=== PATIENT | female | born 1940 | race Caucasian/White ===

== ENCOUNTER 2019-12-20 15:59 | Inpatient (IN) | payer MEDICARE ==
[2019-12-20 16:59] LABS: Appearance,Urine Clear (Clear); Bilirubin,Urine Negative (Negative); Blood,Urine Negative (Negative); Color,Urine Yellow; Glucose,Urine (UA) Negative (Negative); Hyaline Casts,Urine 21 /lpf (0-2); Ketones,Urine Negative (Negative); Leukocyte Esterase,Urine Small (Negative); Mucus,Urine Rare /hpf; Nitrite,Urine Negative (Negative); Protein,Urine Trace (Negative); RBC,Urine 1 /hpf (0-5); Squamous Epithelial Cell,Urine 2 /hpf (0-4); Urobilinogen,Urine <2.0 mg/dL (<2.0); WBC,Urine 3 /hpf (0-5)
[2019-12-20 17:11] LABS: Basophils % (A) 0 %; Eosinophils % (A) 1 %; HCT 35.7 % (34.0-46.0); HGB 11.9 gm/dL (11.4-16.0); Lymphocytes # (A) 0.8 k/uL (1.0-4.8); Lymphocytes % (A) 16 %; MCH 34.3 pg (25.0-35.0); MCHC 33.2 g/dL (31.0-37.0); MCV 103.1 fL (80.0-100.0); Macrocytosis Slight; Mean Platelet Volume 7.7; Monocytes # (A) 0.2 k/uL (0-1.0); Monocytes % (A) 4 %; Neutrophils % (A) 79 %; Platelet Count 119 k/uL (150-450); RBC 3.47 m/uL (3.80-5.40); RDW 13.4 % (11.5-15.5)
[2019-12-20 17:19] LABS: Albumin 3.3 g/dL (3.5-5.0); Calcium 8.9 mg/dL (8.4-10.2); Potassium 4.4 mmol/L (3.5-5.1); Total Bilirubin 0.6 mg/dL (0.2-1.3); Total Protein 5.6 g/dL (6.3-8.2)
[2019-12-20 17:22] LABS: INR 0.9 (<1.2); Partial Thromboplastin Time 24.6 sec (22.0-30.0); Prothrombin Time 9.8 sec (9.0-12.0)
--- NOTE | 2019-12-20 17:55 | XR ---
EXAMINATION TYPE: XR chest 2V DATE OF EXAM: 12/20/2019 COMPARISON: 01/21/2014 HISTORY: Weakness. Dizziness. TECHNIQUE: FINDINGS: Heart and mediastinum are normal. Lungs are clear. Diaphragm is normal. Bony thorax is inta ct. Pulmonary vascularity is normal. There are chest leads. There is some pleural thickening at the l judi apices. IMPRESSION: No active cardiopulmonary disease. Minimal pleural scarring at the lung apices unchanged.
[2019-12-20] MEDS: SODIUM CHLORIDE 0.9% 1,000 ML IV SCH (18:01)
[2019-12-20] MEDS ORDERED: HEPARIN SODIUM,PORCINE 5,000 UNIT/ML 1 ML VIAL IV PRN (18:24)
[2019-12-20] MEDS ORDERED: ASPIRIN 81 MG PO STA (18:24)
[2019-12-20] MEDS ORDERED: HEPARIN SODIUM,PORCINE 5,000 UNIT/ML 1 ML VIAL IV ONE (18:24)
[2019-12-20] MEDS ORDERED: NALOXONE 0.4 MG/ML 1 ML VIAL IV PRN (18:26)
--- NOTE | 2019-12-20 18:58 | ED ---
Weakness HPI - General Chief complaint: Weakness Stated complaint: Weakness Source: patient Mode of arrival: ambulatory - History of Present Illness Initial comments: The patient is a 79-year-old female past medical history of renal transplant in 1998 who presents to the emergency room in with reported weakness. Patient states that starting last Sunday she began having generalized weakness with decreased urine output. Was concerned that her kidneys were failing as her last blood work was done 8 months ago. She does see Dr. Avery but has been unable to see her because of the Covid pandemic. States that her kidney function has been declining slowly. She has been taking her transplant medications as directed. Reports to dark urine without dysuria. Patient is also noted bilateral lower extremity swelling. Also reports to diarrhea. Denies melenic stools or hematochezia. No history of heart failure, valvular disease or GA. Patient denies having any chest pain or shortness of breath. No exertional dyspnea. Admits to nausea without vomiting. No back or flank pain. Denies any abdominal pain. No fevers or chills. Denies any unilateral numbness or weakness. There are no alleviating, precipitating or modifying factors - Related Data Home Medications Medication Instructions Recorded Confirmed Enalapril [Vasotec] 2.5 mg PO QAM PRN 12/03/13 12/20/19 Furosemide [Lasix] 40 mg PO QAM PRN 12/03/13 12/20/19 Levothyroxine Sodium [Synthroid] 75 mcg PO MOTUWETHFR 12/03/13 12/20/19 Raloxifene [Evista] 60 mg PO QAM 12/03/13 12/20/19 predniSONE [Prednisone] 5 mg PO Q48H 12/03/13 12/20/19 Hydrocodone/Acetaminophen [[place] 1 tab PO ACHS PRN 01/21/14 12/20/19 5-325] Iron 27 mg PO DAILY 01/21/14 12/20/19 Atorvastatin [Lipitor] 10 mg PO DAILY 12/20/19 12/20/19 Calcitriol [Rocaltrol] 0.25 mcg PO MOWEFR 12/20/19 12/20/19 Calcium Carbonate [Calcium] 600 mg PO BID 12/20/19 12/20/19 Cyclosporine, Modified 25 mg PO Q48H 12/20/19 12/20/19 [Cyclosporine Modified] Cyclosporine, Modified 50 mg PO Q48H 12/20/19 12/20/19 [Cyclosporine Modified] Ergocalciferol (Vitamin D2) 50,000 unit PO Q30D 12/20/19 12/20/19 [Drisdol] Febuxostat [Uloric] 80 mg PO DAILY 12/20/19 12/20/19 Multivitamins, Thera [Multivitamin 1 tab PO DAILY 12/20/19 12/20/19 (formulary)] Mycophenolate Sodium [Mycophenolic 360 mg PO BID 12/20/19 12/20/19 Acid] predniSONE 2.5 mg PO Q48H 12/20/19 12/20/19 Allergies Allergy/AdvReac Type Severity Reaction Status Date / Time morphine Allergy nightmares Verified 12/20/19 16:13 Penicillins Allergy Unknown Verified 12/20/19 16:13 Childhood Review of Systems ROS Statement: Those systems with pertinent positive or pertinent negative responses have been documented in the HPI. ROS Other: All systems not noted in ROS Statement are negative. Past Medical History Past Medical History: Cancer, Hyperlipidemia, Hypertension, Renal Disease, Thyroid Disorder Additional Past Medical History / Comment(s): MULT SKIN CANCER, GOUT, ARTHRITIS,ULCER YEARS AGO, POLYCYSTIC KIDNEY DISEASE, ANEMIA History of Any Multi-Drug Resistant Organisms: None Reported Past Surgical History: Tubal Ligation Additional Past Surgical History / Comment(s): THOMAS KIDNEY TRANSPLANT 06/1999, CATARACT, LEFT CAROTID ENDARTERECTOMY, RECTAL FISSURE, MULT SKIN CANCER REMOVED, D & C Past Anesthesia/Blood Transfusion Reactions: No Reported Reaction Past Psychological History: No Psychological Hx Reported Smoking Status: Former smoker Past Alcohol Use History: Daily Past Drug Use History: None Reported Course Vital Signs 12/20/19 12/20/19 12/20/19 16:09 16:35 16:56 Temperature 97.5 F L 97.5 F L Pulse Rate 76 62 Respiratory 18 33 H 18 Rate Blood Pressure 142/77 142/77 O2 Sat by Pulse 100 100 Oximetry 12/20/19 12/20/19 12/20/19 17:00 17:30 18:00 Temperature Pulse Rate 61 64 Respiratory 10 L 35 H 11 L Rate Blood Pressure 128/71 O2 Sat by Pulse 100 Oximetry 12/20/19 12/20/19 18:30 19:00 Temperature Pulse Rate 62 60 Respiratory 23 15 Rate Blood Pressure 134/70 134/70 O2 Sat by Pulse 99 97 Oximetry EKG Findings - EKG Comments: EKG Findings:: EKG demonstrates a normal sinus rhythm with a ventricular rate of 64. NM interval 198. QRS 104. QTC of 507. 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 0.5 mm elevation in V3. No STEMI criteria. Procedures - [facility] Protocol (Time Out) Nurse: Nelda Ceja Medical Decision Making - Medical Decision Making Upon arrival patient placed in room 5. A thorough history and physical exam is performed. Patient up to continuous pulse ox and cardiac monitoring. A 12-lead EKG is performed which is concerning for deep inverted T waves in V3 through V6. Positive for Wellens sign however patient has no symptoms of chest pain or shortness of breath. No criteria for STEMI activation. EKG is compared to jesus balaji's previous in 2013 and is different in morphology. Laboratory studies were conducted. Patient does bring a urine sample with her. Labs are remarkable for a sodium of 116. Creatinine 1.48 with a GFR of 34. Troponin comes back elevated at 5.0. BNP 19,100. Urinalysis shows small leukocyte esterase with no bacteria. Chest x-ray demonstrates no active cardiac coronary disease. I discussed the case with Dr. Lorenzo at 1806 because of the patient's abnormal EKG and elevated troponin. He recommends heparinizing the patient as well as providing her with aspirin and a beta ara. I discussed the case with him once again 1836 and he does present to the emergency department shortly after to evaluate her. Upon his evaluation he states that best plan of action is for non-catheterization at this time due to the patient not having chest pain and because of her poor kidney function. Patient has no current medications to heparin. She is agreeable to plan. I will make the patient nothing by mouth by mouth at midnight. Echo was ordered for tomorrow. Patient will be admitted to the floor for nephrology and cardiac consultation. - Lab Data Result diagrams: 12/20/19 16:46 12/20/19 16:46 Lab Results 12/20/19 12/20/19 12/20/19 Range/Units 16:00 16:46 16:46 WBC 5.0 (3.8-10.6) k/uL RBC 3.47 L (3.80-5.40) m/uL Hgb 11.9 (11.4-16.0) gm/dL Hct 35.7 (34.0-46.0) % MCV 103.1 H (80.0-100.0) fL MCH 34.3 (25.0-35.0) pg MCHC 33.2 (31.0-37.0) g/dL RDW 13.4 (11.5-15.5) % Plt Count 119 L (150-450) k/uL Neutrophils % 79 % Lymphocytes % 16 % Monocytes % 4 % Eosinophils % 1 % Basophils % 0 % Neutrophils # 4.0 (1.3-7.7) k/uL Lymphocytes # 0.8 L (1.0-4.8) k/uL Monocytes # 0.2 (0-1.0) k/uL Eosinophils # 0.0 (0-0.7) k/uL Basophils # 0.0 (0-0.2) k/uL Macrocytosis Slight PT 9.8 (9.0-12.0) sec INR 0.9 (<1.2) APTT 24.6 (22.0-30.0) sec Sodium (137-145) mmol/L Potassium (3.5-5.1) mmol/L Chloride (98-107) mmol/L Carbon Dioxide (22-30) mmol/L Anion Gap mmol/L BUN (7-17) mg/dL Creatinine (0.52-1.04) mg/dL Est GFR (CKD-EPI)AfAm (>60 ml/min/1.73 sqM) Est GFR (CKD-EPI)NonAf (>60 ml/min/1.73 sqM) Glucose (74-99) mg/dL Plasma Lactic Acid Oscar (0.7-2.0) mmol/L Calcium (8.4-10.2) mg/dL Total Bilirubin (0.2-1.3) mg/dL AST (14-36) U/L ALT (4-34) U/L Alkaline Phosphatase (38-126) U/L Creatine Kinase (30-135) U/L Troponin I (0.000-0.034) ng/mL NT-Pro-B Natriuret Pep pg/mL Total Protein (6.3-8.2) g/dL Albumin (3.5-5.0) g/dL TSH (0.465-4.680) mIU/L Urine Color Yellow Urine Appearance Clear (Clear) Urine pH 5.0 (5.0-8.0) Ur Specific [place] 1.020 (1.001-1.035) Urine Protein Trace H (Negative) Urine Glucose (UA) Negative (Negative) Urine Ketones Negative (Negative) Urine Blood Negative (Negative) Urine Nitrite Negative (Negative) Urine Bilirubin Negative (Negative) Urine Urobilinogen <2.0 (<2.0) mg/dL Ur Leukocyte Esterase Small H (Negative) Urine RBC 1 (0-5) /hpf Urine WBC 3 (0-5) /hpf Ur Squamous Epith Cells 2 (0-4) /hpf Hyaline Casts 21 H (0-2) /lpf Urine Mucus Rare H (None) /hpf 12/20/19 12/20/19 12/20/19 Range/Units 16:46 16:46 16:46 WBC (3.8-10.6) k/uL RBC (3.80-5.40) m/uL Hgb (11.4-16.0) gm/dL Hct (34.0-46.0) % MCV (80.0-100.0) fL MCH (25.0-35.0) pg MCHC (31.0-37.0) g/dL RDW (11.5-15.5) % Plt Count (150-450) k/uL Neutrophils % % Lymphocytes % % Monocytes % % Eosinophils % % Basophils % % Neutrophils # (1.3-7.7) k/uL Lymphocytes # (1.0-4.8) k/uL Monocytes # (0-1.0) k/uL Eosinophils # (0-0.7) k/uL Basophils # (0-0.2) k/uL Macrocytosis PT (9.0-12.0) sec INR (<1.2) APTT (22.0-30.0) sec Sodium 116 L* (137-145) mmol/L Potassium 4.4 (3.5-5.1) mmol/L Chloride 89 L (98-107) mmol/L Carbon Dioxide 17 L (22-30) mmol/L Anion Gap 10 mmol/L BUN 46 H (7-17) mg/dL Creatinine 1.48 H (0.52-1.04) mg/dL Est GFR (CKD-EPI)AfAm 39 (>60 ml/min/1.73 sqM) Est GFR (CKD-EPI)NonAf 34 (>60 ml/min/1.73 sqM) Glucose 100 H (74-99) mg/dL Plasma Lactic Acid Oscar 0.9 (0.7-2.0) mmol/L Calcium 8.9 (8.4-10.2) mg/dL Total Bilirubin 0.6 (0.2-1.3) mg/dL AST 54 H (14-36) U/L ALT 14 (4-34) U/L Alkaline Phosphatase 57 (38-126) U/L Creatine Kinase 327 H (30-135) U/L Troponin I 5.010 H* (0.000-0.034) ng/mL NT-Pro-B Natriuret Pep pg/mL Total Protein 5.6 L (6.3-8.2) g/dL Albumin 3.3 L (3.5-5.0) g/dL TSH 1.630 (0.465-4.680) mIU/L Urine Color Urine Appearance (Clear) Urine pH (5.0-8.0) Ur Specific [place] (1.001-1.035) Urine Protein (Negative) Urine Glucose (UA) (Negative) Urine Ketones (Negative) Urine Blood (Negative) Urine Nitrite (Negative) Urine Bilirubin (Negative) Urine Urobilinogen (<2.0) mg/dL Ur Leukocyte Esterase (Negative) Urine RBC (0-5) /hpf Urine WBC (0-5) /hpf Ur Squamous Epith Cells (0-4) /hpf Hyaline Casts (0-2) /lpf Urine Mucus (None) /hpf 12/19/ Range/Units 16:46 WBC (3.8-10.6) k/uL RBC (3.80-5.40) m/uL Hgb (11.4-16.0) gm/dL Hct (34.0-46.0) % MCV (80.0-100.0) fL MCH (25.0-35.0) pg MCHC (31.0-37.0) g/dL RDW (11.5-15.5) % Plt Count (150-450) k/uL Neutrophils % % Lymphocytes % % Monocytes % % Eosinophils % % Basophils % % Neutrophils # (1.3-7.7) k/uL Lymphocytes # (1.0-4.8) k/uL Monocytes # (0-1.0) k/uL Eosinophils # (0-0.7) k/uL Basophils # (0-0.2) k/uL Macrocytosis PT (9.0-12.0) sec INR (<1.2) APTT (22.0-30.0) sec Sodium (137-145) mmol/L Potassium (3.5-5.1) mmol/L Chloride (98-107) mmol/L Carbon Dioxide (22-30) mmol/L Anion Gap mmol/L BUN (7-17) mg/dL Creatinine (0.52-1.04) mg/dL Est GFR (CKD-EPI)AfAm (>60 ml/min/1.73 sqM) Est GFR (CKD-EPI)NonAf (>60 ml/min/1.73 sqM) Glucose (74-99) mg/dL Plasma Lactic Acid Oscar (0.7-2.0) mmol/L Calcium (8.4-10.2) mg/dL Total Bilirubin (0.2-1.3) mg/dL AST (14-36) U/L ALT (4-34) U/L Alkaline Phosphatase (38-126) U/L Creatine Kinase (30-135) U/L Troponin I (0.000-0.034) ng/mL NT-Pro-B Natriuret Pep 99726 pg/mL Total Protein (6.3-8.2) g/dL Albumin (3.5-5.0) g/dL TSH (0.465-4.680) mIU/L Urine Color Urine Appearance (Clear) Urine pH (5.0-8.0) Ur Specific [place] (1.001-1.035) Urine Protein (Negative) Urine Glucose (UA) (Negative) Urine Ketones (Negative) Urine Blood (Negative) Urine Nitrite (Negative) Urine Bilirubin (Negative) Urine Urobilinogen (<2.0) mg/dL Ur Leukocyte Esterase (Negative) Urine RBC (0-5) /hpf Urine WBC (0-5) /hpf Ur Squamous Epith Cells (0-4) /hpf Hyaline Casts (0-2) /lpf Urine Mucus (None) /hpf Disposition Clinical Impression: Non-STEMI (non-ST elevated myocardial infarction), Heart failure, Hyponatremia, Renal transplant recipient Disposition: ADMITTED IP TO THIS HOSP Condition: Serious Is patient prescribed a controlled substance at d/c from ED?: No Decision to Admit Reason: Admit from EC Decision Date: 12/20/19 Decision Time: 18:58
[2019-12-20] MEDS: HEPARIN SOD,PORK IN 0.45% NACL 25,000 UNIT in 0.45% NACL 1 250ML.BAG IV SCH (19:13)
--- NOTE | 2019-12-20 19:24 | P.CRDCN ---
History of Present Illness Consult date: 12/20/19 Chief complaint: Generalized weakness History of present illness: This is a very pleasant 79-year-old female patient with a past medical history significant for hypertension, dyslipidemia, and history of renal transplant several years ago, presented to the emergency room because she was not feeling well. The patient lives by herself but she is under a lot of stress with her son and his . Her son currently is in senior care. His is alcohol rate. The patient is very stressed about the whole situation. Her symptoms started about a week ago, this past Sunday when she started experiencing generalized weakness and fatigue without any symptoms of chest pain or chest discomfort. The generalized weakness and fatigue have progressed over the next several days. For the last few days she has been experiencing progressive lower extremities edema and she has been retaining water. She did not have any symptoms of shortness of breath, dizziness, heart racing or fluttering or syncope. She did not have any symptoms of chest pain or chest discomfort. She decided to come to the emergency department. In the ER the workup was consistent with heart failure. The BNP came in to be elevated. More importantly, on physical examination she does have significant bilateral lower extremities pitting edema. Beside that she does have a pansystolic murmur consistent with possible mitral regurgitation murmur. Beside that she underwent an EKG which revealed sinus rhythm with Q waves in V1, V2, and V3, was very minimal ST segment changes. The troponin came in to be abnormal as well as 5.0. Beside that her sodium was low. The chest x-ray did not show any acute abnormalities. More importantly, the patient GFR is abnormal at 35. I had a long discussion with the patient regarding the next step. I discussed with her the invasive strategy and proceeding with coronary angiogram with the benefit of knowing the coronary anatomy and possibly performing percutaneous coronary intervention if needed, as well as the risks which include possible acute renal failure giving her abnormal GFR at this point as well as a history of renal transplant. I also discussed with the patient the conservative strategy which include starting her on aspirin as well as beta ara with metoprolol as well as heparin IV and also obtain an echocardiogram was Doppler to evaluate the different systolic function as well as intracardiac valves as well as for any wall motion abnormalities concerning for severe underlying coronary artery disease. After I discussed both strategies with the patient the patient would like to pursue with a conservative medical approach at this point and she is reluctant to undergo coronary angiogram with a concern regarding her renal failure and the renal transplant. Having said that I am going to admit the patient to the floor. She will be started on aspirin, metoprolol, statin, as well as heparin IV. We'll obtain an echocardiogram was Doppler. We'll continue following up with the patient. Past Medical History Past Medical History: Cancer, Hyperlipidemia, Hypertension, Renal Disease, Thyroid Disorder Additional Past Medical History / Comment(s): MULT SKIN CANCER, GOUT, ARTHRITIS,ULCER YEARS AGO, POLYCYSTIC KIDNEY DISEASE, ANEMIA History of Any Multi-Drug Resistant Organisms: None Reported Past Surgical History: Tubal Ligation Additional Past Surgical History / Comment(s): THOMAS KIDNEY TRANSPLANT 06/1999, CATARACT, LEFT CAROTID ENDARTERECTOMY, RECTAL FISSURE, MULT SKIN CANCER REMOVED, D & C Past Anesthesia/Blood Transfusion Reactions: No Reported Reaction Past Psychological History: No Psychological Hx Reported Smoking Status: Former smoker Past Alcohol Use History: Daily Past Drug Use History: None Reported Medications and Allergies Home Medications Medication Instructions Recorded Confirmed Type Enalapril [Vasotec] 2.5 mg PO QAM PRN 12/03/13 12/20/19 History Furosemide [Lasix] 40 mg PO QAM PRN 12/03/13 12/20/19 History Levothyroxine Sodium [Synthroid] 75 mcg PO MOTUWETHFR 12/03/13 12/20/19 History Raloxifene [Evista] 60 mg PO QAM 12/03/13 12/20/19 History predniSONE [Prednisone] 5 mg PO Q48H 12/03/13 12/20/19 History Hydrocodone/Acetaminophen [[place] 1 tab PO ACHS PRN 01/21/14 12/20/19 History 5-325] Iron 27 mg PO DAILY 01/21/14 12/20/19 History Atorvastatin [Lipitor] 10 mg PO DAILY 12/20/19 12/20/19 History Calcitriol [Rocaltrol] 0.25 mcg PO MOWEFR 12/20/19 12/20/19 History Calcium Carbonate [Calcium] 600 mg PO BID 12/20/19 12/20/19 History Cyclosporine, Modified 25 mg PO Q48H 12/20/19 12/20/19 History [Cyclosporine Modified] Cyclosporine, Modified 50 mg PO Q48H 12/20/19 12/20/19 History [Cyclosporine Modified] Ergocalciferol (Vitamin D2) 50,000 unit PO Q30D 12/20/19 12/20/19 History [Drisdol] Febuxostat [Uloric] 80 mg PO DAILY 12/20/19 12/20/19 History Multivitamins, Thera [Multivitamin 1 tab PO DAILY 12/20/19 12/20/19 History (formulary)] Mycophenolate Sodium [Mycophenolic 360 mg PO BID 12/20/19 12/20/19 History Acid] predniSONE 2.5 mg PO Q48H 12/20/19 12/20/19 History Allergies Allergy/AdvReac Type Severity Reaction Status Date / Time morphine Allergy nightmares Verified 12/20/19 16:13 Penicillins Allergy Unknown Verified 12/20/19 16:13 Childhood Physical Exam Vitals: Vital Signs Temp Pulse Resp BP Pulse Ox 12/20/19 19:00 60 15 134/70 97 12/20/19 18:30 62 23 134/70 99 12/20/19 18:00 11 L 128/71 100 12/20/19 17:30 64 35 H 12/20/19 17:00 61 10 L 12/20/19 16:56 97.5 F L 62 18 142/77 100 12/20/19 16:35 33 H 12/20/19 16:09 97.5 F L 76 18 142/77 100 Intake and Output 12/20/19 12/20/19 12/20/19 06:59 14:59 22:59 Other: Weight 81.647 kg - Constitutional General appearance: no acute distress - Respiratory Respiratory: bilateral: CTA - Cardiovascular Rhythm: regular Heart sounds: normal: S1, S2 Abnormal Heart Sounds: systolic murmur Results 12/20/19 16:46 12/20/19 16:46 Cardiac Enzymes 12/20/19 12/20/19 Range/Units 16:46 16:46 AST 54 H (14-36) U/L Troponin I 5.010 H* (0.000-0.034) ng/mL Coagulation 12/20/19 Range/Units 16:46 PT 9.8 (9.0-12.0) sec APTT 24.6 (22.0-30.0) sec CBC 12/20/19 Range/Units 16:46 WBC 5.0 (3.8-10.6) k/uL RBC 3.47 L (3.80-5.40) m/uL Hgb 11.9 (11.4-16.0) gm/dL Hct 35.7 (34.0-46.0) % Plt Count 119 L (150-450) k/uL Comprehensive Metabolic Panel 12/20/19 Range/Units 16:46 Sodium 116 L* (137-145) mmol/L Potassium 4.4 (3.5-5.1) mmol/L Chloride 89 L (98-107) mmol/L Carbon Dioxide 17 L (22-30) mmol/L BUN 46 H (7-17) mg/dL Creatinine 1.48 H (0.52-1.04) mg/dL Glucose 100 H (74-99) mg/dL Calcium 8.9 (8.4-10.2) mg/dL AST 54 H (14-36) U/L ALT 14 (4-34) U/L Alkaline Phosphatase 57 (38-126) U/L Total Protein 5.6 L (6.3-8.2) g/dL Albumin 3.3 L (3.5-5.0) g/dL Current Medications Generic Name Dose Route Start Last Admin Trade Name Freq PRN Reason Stop Dose Admin Heparin Sodium (Porcine) 0 unit 12/20/19 18:24 Heparin IV PER PROTOCOL PRN Low PTT Protocol Sodium Chloride 1,000 mls @ 100 mls/hr 12/20/19 17:30 12/20/19 18:01 Saline 0.9% IV 100 mls/hr .Q10H NGOC Administration Heparin Sodium/Sodium Chloride 250 mls @ 9.798 mls/hr 12/20/19 18:30 12/20/19 19:13 25,000 unit/ Sodium Chloride IV 12 units/kg/hr .Q24H NGOC 9.798 mls/hr Administration Protocol 12 UNITS/KG/HR Metoprolol Tartrate 12.5 mg 12/20/19 19:00 Lopressor PO DAILY NGOC Naloxone HCl 0.2 mg 12/20/19 18:26 Narcan IV Q2M PRN Opioid Reversal Intake and Output 12/20/19 12/20/19 12/20/19 06:59 14:59 22:59 Other: Weight 81.647 kg Patient Weight 12/21/19 06:59 Weight 81.647 kg 12/20/19 16:46 12/20/19 16:46 Assessment and Plan Assessment: Assessment #1 acute coronary event #2 heart failure with predominantly right heart failure, probably the heart failure was precipitated by acute coronary event. #3 valvular heart disease #4 chronic kidney disease #5 status post kidney transplant #6 electrolytes imbalance with hyponatremia #7 hypertension #8 dyslipidemia Plan #1 conservative medical approach at this point #2 start the patient on aspirin, metoprolol, and statin #3 start the patient on heparin IV #4 an echocardiogram was Doppler #5 nephrology consult #6 proceed with coronary angiogram once the kidney function normalized and once we have the okay from the nephrology service Thank you for allowing us participate in her care we will continue following up with the patient
[2019-12-20] MEDS: MYCOPHENOLATE SODIUM DR 180 MG TABLET.DR PO SCH (20:46)
[2019-12-20] MEDS: METOPROLOL TARTRATE 12.5 MG TAB PO SCH (20:46)
[2019-12-21] MEDS ORDERED: LORazepam 2 MG/ML INJ IV PRN ×3 (01:11)
--- NOTE | 2019-12-21 01:11 | P.HPIM ---
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 she has also been under a lot of emotional stress due to social issues. she denies any cardiac history, denies any chest pain or trouble breathing . but she has noticed increase leg swelling over the past couple days , which prompted her to come seeking help , as she was worried about her kidneys. she denies any fever, chills, chest pain , SOB, URI symptoms, dysuria, GI bleeding she has been self isolating and practicing good hygiene practice. denies any recent travel or sick contact. she admits to drinking couple glasses of wine every day denies any recent changes in her medications she also reports symptoms of RLS. she takes norco at home for back pain patient was evaluated by cardiology, due to elevated trops, and Q waves in V1,2,3. and T wave inversion diffusely. Patient agreed with cardiology to pursue maximal medical management, at this time, awaiting nephrology evaluation and clearance to pursue left heart cath . labs reflected renal function that is off, hyponatremia, and elevated troponins Review of Systems Pertinent positives as noted in HPI. All other systems were reviewed and are negative Past Medical History Past Medical History: Cancer, Hyperlipidemia, Hypertension, Renal Disease, Thyroid Disorder Additional Past Medical History / Comment(s): MULT SKIN CANCER, GOUT, ARTHRITIS,ULCER YEARS AGO, POLYCYSTIC KIDNEY DISEASE, ANEMIA History of Any Multi-Drug Resistant Organisms: None Reported Past Surgical History: Tubal Ligation Additional Past Surgical History / Comment(s): [facility] 06/1999, C ATARACT, LEFT CAROTID ENDARTERECTOMY, RECTAL FISSURE, MULT SKIN CANCER REMOVED, D & C Past Anesthesia/Blood Transfusion Reactions: No Reported Reaction Past Psychological History: No Psychological Hx Reported Smoking Status: Former smoker Past Alcohol Use History: Daily Past Drug Use History: None Reported - Past Family History family Family Medical History: No Reported History Medications and Allergies Home Medications Medication Instructions Recorded Confirmed Type Enalapril [Vasotec] 2.5 mg PO QAM PRN 12/03/13 12/20/19 History Furosemide [Lasix] 40 mg PO QAM PRN 12/03/13 12/20/19 History Levothyroxine Sodium [Synthroid] 75 mcg PO MOTUWETHFR 12/03/13 12/20/19 History Raloxifene [Evista] 60 mg PO QAM 12/03/13 12/20/19 History predniSONE [Prednisone] 5 mg PO Q48H 12/03/13 12/20/19 History Hydrocodone/Acetaminophen [Crowder 1 tab PO ACHS PRN 01/21/14 12/20/19 History 5-325] Iron 27 mg PO DAILY 01/21/14 12/20/19 History Atorvastatin [Lipitor] 10 mg PO DAILY 12/20/19 12/20/19 History Calcitriol [Rocaltrol] 0.25 mcg PO MOWEFR 12/20/19 12/20/19 History Calcium Carbonate [Calcium] 600 mg PO BID 12/20/19 12/20/19 History Cyclosporine, Modified 25 mg PO Q48H 12/20/19 12/20/19 History [Cyclosporine Modified] Cyclosporine, Modified 50 mg PO Q48H 12/20/19 12/20/19 History [Cyclosporine Modified] Ergocalciferol (Vitamin D2) 50,000 unit PO Q30D 12/20/19 12/20/19 History [Drisdol] Febuxostat [Uloric] 80 mg PO DAILY 12/20/19 12/20/19 History Multivitamins, Thera [Multivitamin 1 tab PO DAILY 12/20/19 12/20/19 History (formulary)] Mycophenolate Sodium [Mycophenolic 360 mg PO BID 12/20/19 12/20/19 History Acid] predniSONE 2.5 mg PO Q48H 12/20/19 12/20/19 History Allergies Allergy/AdvReac Type Severity Reaction Status Date / Time morphine Allergy nightmares Verified 12/20/19 16:13 Penicillins Allergy Unknown Verified 12/20/19 16:13 Childhood Physical Exam Vitals: Vital Signs Temp Pulse Resp BP Pulse Ox 12/20/19 19:17 97.5 F L 66 15 124/73 97 12/20/19 19:00 60 15 134/70 97 12/20/19 18:30 62 23 134/70 99 12/20/19 18:00 11 L 128/71 100 12/20/19 17:30 64 35 H 12/20/19 17:00 61 10 L 12/20/19 16:56 97.5 F L 62 18 142/77 100 12/20/19 16:35 33 H 12/20/19 16:09 97.5 F L 76 18 142/77 100 Intake and Output 12/20/19 12/20/19 12/20/19 06:59 14:59 22:59 Other: Weight 81.647 kg Constitutional: No acute distress, conversant, pleasant Eyes: Anicteric sclerae, moist conjunctiva, Pupils equal round reactive to light ENMT: NC/AT Oropharynx clear, no erythema, or exudates Neck: Supple, FROM, no masses, or JVD No carotid bruits No thyromegaly Lungs: Clear to auscultation Clear to percussion Normal respiratory effort, no accessory muscle use Cardiovascular: Heart regular in rate and rhythm, systolic murmur, no gallops, or rubs +2 peripheral edema bilaterally Abdominal: Soft Nontender, no guarding, rebound or rigidity Abdomen moving with respiration Normoactive bowel sounds No hepatomegaly, No splenomegaly No palpable mass No abdominal wall hernia noted Skin: chronic skin changes over bilateral lower extremities with edema otherwise Normal temperature, tone, texture, turgor Extremities: No digital cyanosis No clubbing Pedal pulses intact and symmetrical Radial pulses intact and symmetrical No calf tenderness Psychiatric: Alert and oriented to person, place and time Appropriate affect fair judgement Neuro Muscles Strength 5/5 in all 4 extremities Sensation to light touch grossly present throughout Cranial nerves II-XII grossly intact No focal sensory deficits Lymphatics: no palpable cervical or supraclavicular , or inguinal lymph nodes Results CBC & Chem 7: 12/20/19 16:46 12/20/19 16:46 Labs: Abnormal Lab Results - Last 24 Hours (Table) 12/20/19 12/20/19 12/20/19 Range/Units 16:00 16:46 16:46 RBC 3.47 L (3.80-5.40) m/uL MCV 103.1 H (80.0-100.0) fL Plt Count 119 L (150-450) k/uL Lymphocytes # 0.8 L (1.0-4.8) k/uL Sodium 116 L* (137-145) mmol/L Chloride 89 L (98-107) mmol/L Carbon Dioxide 17 L (22-30) mmol/L BUN 46 H (7-17) mg/dL Creatinine 1.48 H (0.52-1.04) mg/dL Glucose 100 H (74-99) mg/dL AST 54 H (14-36) U/L Creatine Kinase 327 H (30-135) U/L Troponin I (0.000-0.034) ng/mL Total Protein 5.6 L (6.3-8.2) g/dL Albumin 3.3 L (3.5-5.0) g/dL Urine Protein Trace H (Negative) Ur Leukocyte Esterase Small H (Negative) Hyaline Casts 21 H (0-2) /lpf Urine Mucus Rare H (None) /hpf 12/20/19 Range/Units 16:46 RBC (3.80-5.40) m/uL MCV (80.0-100.0) fL Plt Count (150-450) k/uL Lymphocytes # (1.0-4.8) k/uL Sodium (137-145) mmol/L Chloride (98-107) mmol/L Carbon Dioxide (22-30) mmol/L BUN (7-17) mg/dL Creatinine (0.52-1.04) mg/dL Glucose (74-99) mg/dL AST (14-36) U/L Creatine Kinase (30-135) U/L Troponin I 5.010 H* (0.000-0.034) ng/mL Total Protein (6.3-8.2) g/dL Albumin (3.5-5.0) g/dL Urine Protein (Negative) Ur Leukocyte Esterase (Negative) Hyaline Casts (0-2) /lpf Urine Mucus (None) /hpf Assessment and Plan Assessment: 79 year old female with hypertension , hypothyroid, renal transplant post polycystic kidneys comes is due to bilateral leg swelling found to have elevated troponins, admitted to rule out CHF and underlying ACS anticipated length of stay >2 midnights Elevated troponins rule out ACS/ NSTEMI bilateral leg edema , most likely secondary to chronic venous insufficiency chronic allograft renal failure , s/p polycystic kidney gentle IVF hydration monitor renal function cardiology recommended maximal medical management , await nephrology eval and clearance regarding left heart cath heparin gtt ASA, statin monitor troponins follow up renal function resume antirejection meds nephro eval ALcohol dependance monitor for alcohol withdrawal symptoms PRN benzos per CIWA thiamine chronic conditions hypothyroid hypertension hyperlipidemia resume home meds hold ACEI , due to renal fuction abnormalities CODE STATUS: full code DVT prophylaxis: on heparin drip for NSTEMI Discussed with: Patient, ER, RN Anticipated length of stay > than [address]: home A total of 75 minutes was spent on the care of this complex patient more than 50% of the time was spent in counseling and care coordination.
[2019-12-21] MEDS: HYDROcodone/APAP 5-325MG 1 EACH TAB PO PRN ×5 (01:18→20:28)
[2019-12-21] MEDS: SODIUM CHLORIDE 0.9% 1,000 ML IV SCH (04:47)
[2019-12-21 05:13] LABS: Prothrombin Time 10.6 sec (9.0-12.0)
[2019-12-21 05:17] LABS: Basophils % (A) 0 %; Eosinophils % (A) 1 %; HCT 30.1 % (34.0-46.0); HGB 10.1 gm/dL (11.4-16.0); Lymphocytes # (A) 2.1 k/uL (1.0-4.8); Lymphocytes % (A) 50 %; MCH 34.9 pg (25.0-35.0); MCHC 33.7 g/dL (31.0-37.0); MCV 103.5 fL (80.0-100.0); Macrocytosis Slight; Mean Platelet Volume 8.1; Monocytes # (A) 0.2 k/uL (0-1.0); Monocytes % (A) 5 %; Neutrophils # (A) 1.8 k/uL (1.3-7.7); Neutrophils % (A) 43 %; RDW 13.4 % (11.5-15.5); WBC 4.2 k/uL (3.8-10.6)
[2019-12-21 05:50] LABS: Albumin 2.5 g/dL (3.5-5.0); Calcium 8.3 mg/dL (8.4-10.2); Potassium 4.2 mmol/L (3.5-5.1); Total Bilirubin 0.3 mg/dL (0.2-1.3); Total Protein 4.7 g/dL (6.3-8.2)
[2019-12-21] MEDS: THIAMINE 100 MG TAB PO SCH ×2 (06:15→17:47)
[2019-12-21 06:27] LABS: Platelet Count 91 k/uL (150-450)
[2019-12-21] MEDS: RALOXIFENE 60 MG TAB PO SCH (08:23)
[2019-12-21] MEDS: MYCOPHENOLATE SODIUM DR 180 MG TABLET.DR PO SCH ×2 (08:24→20:28)
[2019-12-21] MEDS: ATORVASTATIN 10 MG TAB PO SCH (08:26)
[2019-12-21] MEDS: predniSONE 5 MG TAB PO SCH (08:28)
[2019-12-21] MEDS: METOPROLOL TARTRATE 12.5 MG TAB PO SCH (08:29)
[2019-12-21] MEDS: ASPIRIN 81 MG PO SCH (10:22)
--- NOTE | 2019-12-21 11:32 | P.PN ---
Subjective Progress Note Date: 12/21/19 This is a pleasant 79-year-old female with past medical history significant for hyperlipidemia, hypertension, history of renal transplant several years ago who presented to the hospital mainly with symptoms of not feeling well. She was having some general weakness and fatigue as well as some shortness of breath. She also was having progressive worsening in her lower extremity edema. The workup in the emergency room was consistent with congestive heart failure. Patient did have significant lower extremity bilateral pitting edema, appears today that the edema has worsened in her lower extremities. Blood pressure 116/70 with a heart rate in the 90s, 97% on room air. White blood cell count 4.2, hemoglobin 10.1, platelet count 91. Sodium 118, potassium 4.2, BUN 48, creatinine 1.4. Troponins 5.0, 4.1, 3.0. BNP level on admission was 19,100. Objective - Vital Signs Vital signs: Vital Signs Temp 98.4 F 12/21/19 04:00 Pulse 103 H 12/21/19 04:00 Resp 18 12/21/19 04:00 BP 116/79 12/21/19 04:00 Pulse Ox 97 12/21/19 04:00 Intake & Output 12/20/19 12/21/19 12/21/19 18:59 06:59 18:59 Intake Total 56.992 46.905 Output Total 200 Balance 56.992 -153.095 Weight 81.647 kg 82 kg Intake: Intake, IV Titration 56.992 46.905 Amount Heparin Sod,Pork in 0.45% 56.992 46.905 NaCl 25,000 unit In 0.45 % NaCl 1 250ml.bag @ 12 UNITS/KG/HR 9.798 mls/hr IV .Q24H NGOC Rx#: [id number] Output: Urine 200 Other: Voiding Method Toilet # Voids 2 - Exam PHYSICAL EXAMINATION: GENERAL: 79-year-old female in no acute distress at the time of my examination HEENT: Head is atraumatic, normocephalic. Pupils equal, round. Sclera anicteric. Conjunctiva are clear. Mucous membranes of the mouth are moist. Neck is supple. There is elevated jugular venous pressure. No carotid bruit is heard. HEART EXAMINATION: S1 and S2 1 pansystolic murmur is heard CHEST EXAMINATION:'s reveal diminished air entry to the bases bilaterally ABDOMEN: Soft, obese, nontender. Bowel sounds are heard. No organomegaly noted. EXTREMITIES: 2+ peripheral pulses with 2-3+ evidence of peripheral edema and no calf tenderness noted. NEUROLOGIC patient is awake, alert and oriented 3 . . - Labs CBC & Chem 7: 12/21/19 04:45 12/21/19 04:45 Labs: Abnormal Lab Results - Last 24 Hours (Table) 12/20/19 12/20/19 12/20/19 Range/Units 16:00 16:46 16:46 RBC 3.47 L (3.80-5.40) m/uL Hgb (11.4-16.0) gm/dL Hct (34.0-46.0) % MCV 103.1 H (80.0-100.0) fL Plt Count 119 L (150-450) k/uL Lymphocytes # 0.8 L (1.0-4.8) k/uL APTT (22.0-30.0) sec Sodium 116 L* (137-145) mmol/L Chloride 89 L (98-107) mmol/L Carbon Dioxide 17 L (22-30) mmol/L BUN 46 H (7-17) mg/dL Creatinine 1.48 H (0.52-1.04) mg/dL Glucose 100 H (74-99) mg/dL Calcium (8.4-10.2) mg/dL AST 54 H (14-36) U/L Creatine Kinase 327 H (30-135) U/L Troponin I (0.000-0.034) ng/mL Total Protein 5.6 L (6.3-8.2) g/dL Albumin 3.3 L (3.5-5.0) g/dL Urine Protein Trace H (Negative) Ur Leukocyte Esterase Small H (Negative) Hyaline Casts 21 H (0-2) /lpf Urine Mucus Rare H (None) /hpf 12/20/19 12/20/19 12/20/19 Range/Units 16:46 23:55 23:55 RBC (3.80-5.40) m/uL Hgb (11.4-16.0) gm/dL Hct (34.0-46.0) % MCV (80.0-100.0) fL Plt Count (150-450) k/uL Lymphocytes # (1.0-4.8) k/uL APTT 127.4 H* (22.0-30.0) sec Sodium (137-145) mmol/L Chloride (98-107) mmol/L Carbon Dioxide (22-30) mmol/L BUN (7-17) mg/dL Creatinine (0.52-1.04) mg/dL Glucose (74-99) mg/dL Calcium (8.4-10.2) mg/dL AST (14-36) U/L Creatine Kinase (30-135) U/L Troponin I 5.010 H* 4.170 H* (0.000-0.034) ng/mL Total Protein (6.3-8.2) g/dL Albumin (3.5-5.0) g/dL Urine Protein (Negative) Ur Leukocyte Esterase (Negative) Hyaline Casts (0-2) /lpf Urine Mucus (None) /hpf 12/21/19 12/21/19 12/21/19 Range/Units 04:45 04:45 04:45 RBC 2.90 L (3.80-5.40) m/uL Hgb 10.1 L (11.4-16.0) gm/dL Hct 30.1 L (34.0-46.0) % MCV 103.5 H (80.0-100.0) fL Plt Count 91 L (150-450) k/uL Lymphocytes # (1.0-4.8) k/uL APTT (22.0-30.0) sec Sodium 118 L* (137-145) mmol/L Chloride 91 L (98-107) mmol/L Carbon Dioxide 21 L (22-30) mmol/L BUN 48 H (7-17) mg/dL Creatinine 1.46 H (0.52-1.04) mg/dL Glucose (74-99) mg/dL Calcium 8.3 L (8.4-10.2) mg/dL AST 49 H (14-36) U/L Creatine Kinase (30-135) U/L Troponin I 3.070 H* (0.000-0.034) ng/mL Total Protein 4.7 L (6.3-8.2) g/dL Albumin 2.5 L (3.5-5.0) g/dL Urine Protein (Negative) Ur Leukocyte Esterase (Negative) Hyaline Casts (0-2) /lpf Urine Mucus (None) /hpf 12/21/19 Range/Units 07:34 RBC (3.80-5.40) m/uL Hgb (11.4-16.0) gm/dL Hct (34.0-46.0) % MCV (80.0-100.0) fL Plt Count (150-450) k/uL Lymphocytes # (1.0-4.8) k/uL APTT 53.6 H (22.0-30.0) sec Sodium (137-145) mmol/L Chloride (98-107) mmol/L Carbon Dioxide (22-30) mmol/L BUN (7-17) mg/dL Creatinine (0.52-1.04) mg/dL Glucose (74-99) mg/dL Calcium (8.4-10.2) mg/dL AST (14-36) U/L Creatine Kinase (30-135) U/L Troponin I (0.000-0.034) ng/mL Total Protein (6.3-8.2) g/dL Albumin (3.5-5.0) g/dL Urine Protein (Negative) Ur Leukocyte Esterase (Negative) Hyaline Casts (0-2) /lpf Urine Mucus (None) /hpf Assessment and Plan Plan: Assessment and plan #1 acute coronary event, at present we'll continue maximum medical therapy, once cleared from a heart failure and nephrology perspective we may consider cardiac catheterization #2 congestive heart failure, LV function unknown #3 valvular heart disease #4 acute on chronic kidney disease with prior kidney transplant #5 hyponatremia #6 hypertension 7 hyperlipidemia Plan I spoke with nephrology this morning who will initiate the patient on some IV Lasix. We will review her echocardiogram with Doppler study tomorrow. Continue IV heparin, aspirin, metoprolol, and statin. Proceed with coronary angiogram once the kidney function normalizes and once the patient is cleared from a nephrology perspective. DNP note has been reviewed, I agree with a documented findings and plan of care. Patient was seen and examined.
--- NOTE | 2019-12-21 11:35 | CONS ---
CONSULTATION REASON FOR CONSULT: Hyponatremia and post transplant care. HISTORY OF PRESENT ILLNESS: Patient is a 79-year-old female with history of donor kidney transplant almost about 20 years ago at [facility] for polycystic kidney disease. Patient's baseline creatinine is about 1.9-1.7 mg/dL. She was admitted to the hospital on this admission with complaints off diarrhea, not feeling well and increased weakness. Patient did have some lower extremity edema. She was started on IV fluids post admission. The patient was also found to have elevated troponins and EKG changes noted on this admission. Her troponin was as high as 5 on admission, it is now down to about 3. The patient is being considered for cardiac catheterization. Her sodium was 116 on admission, currently it is at 118 mEq/L. No previous history of hyponatremia. Serum creatinine was 1.48 and it is at 1.46 now. Previous creatinine initially in 2013 was 1.5-1.2 mg/dL but mostly most recently running about 1.7 as outpatient. This morning patient is complaining of increased shortness of breath and worsening edema. She has had good urine output. No ongoing diarrhea at this time. No fever or chills. 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 Baseline creatinine about 1.7-1.9 most recently. History of multiple skin cancers, gout, osteoarthritis, polycystic kidney disease, anemia of chronic disease, hypothyroidism. PAST SURGICAL HISTORY: Tubal ligation, kidney transplant, left carotid endarterectomy, multiple surgeries for skin cancer. SOCIAL HISTORY: Patient is a former smoker. No history of drug abuse or alcohol abuse. MEDICATIONS: At home included enalapril, Lasix Synthroid, Evista, prednisone, Lipitor, Rocaltrol, calcium, cyclosporine, vitamin D2, Uloric, Myfortic, prednisone. ALLERGIES: Include MORPHINE AND PENICILLIN, type of allergy is not known. REVIEW OF SYSTEMS: As per HPI. Other systems negative. PHYSICAL EXAMINATION: Patient is comfortable, awake. She is not in any acute distress. Mildly short of breath. Blood pressure was 116/79, heart rate 103 per minute, patient is afebrile. Examination of the heart S1, S2. Examination of the lungs, bilateral breath sounds are heard. Abdomen is soft, nontender. Examination lower extremities shows 2+ edema bilaterally. Basal crackles are heard on lung exam. [employer] exam grossly intact. LAB: Show sodium 118, potassium 4.2, chloride 91, CO2 is 21, BUN 48, creatinine 1.46, hemoglobin 10.1 g/dL. Troponin 3.07. UA shows trace protein, no blood. Chest x-ray on admission yesterday showed no active cardiopulmonary disease. ASSESSMENT: 1. Hyponatremia, appears to be hypervolemic. We will diurese the patient. Check urine osmolality as well. Serum cortisol will be low as patient is chronically maintained on prednisone. Therefore, it will not be checked. 2. Status post donor transplant almost 20 years ago for polycystic kidney disease, maintained on prednisone, Myfortic and cyclosporine. Check cyclosporine level. 3. Chronic kidney disease stage 3. Baseline creatinine about 1.7 mg/dL secondary to chronic allograft nephropathy. 4. Acute myocardial infarction, non ST elevation, being followed by Cardiology, being considered for cardiac catheterization. 5. Volume overload. Check echocardiogram. 6. Chronic kidney disease mineral bone disorder maintained on Rocaltrol which we will continue. 7. Metabolic acidosis associated with renal failure and previous history of diarrhea prior to admission, currently improved. PLAN: Start Lasix 40 mg q.12 hours. Repeat sodium this evening. Maintain off of IV fluids. If serum sodium drops, I will give her a dose of tolvaptan. Check urine osmolality. Renal function is at baseline or slightly better than baseline. therefore, if she needs to proceed with cardiac catheterization, it should be okay once the serum sodium stabilizes. Thank you for this consultation. We will continue to follow the patient with you during her hospitalization. MMODL / IJN: [id number] /
[2019-12-21] MEDS: FUROSEMIDE 10 MG/ML 4 ML VIAL IV SCH ×2 (12:05→20:29)
--- NOTE | 2019-12-21 15:15 | P.PN ---
Subjective Progress Note Date: 12/21/19 Principal diagnosis: Generalized weakness, lower extremity swelling Patient was seen and examined. No acute events overnight. Patient reports that her baseline creatinine is 1.9. She has a history of renal transplant for polycystic kidneys. She continues to complain of lower katherine swelling has worsened since admission. She denies any chest pain, shortness breath or palp itations. No nausea or vomiting. No fever or chills. Objective - Vital Signs Vital signs: Vital Signs Temp 97.5 F L 12/21/19 12:00 Pulse 53 L 12/21/19 12:00 Resp 14 12/21/19 12:00 BP 116/63 12/21/19 12:00 Pulse Ox 100 12/21/19 12:00 Intake & Output 12/20/19 12/21/19 12/21/19 18:59 06:59 18:59 Intake Total 56.992 46.905 Output Total 200 Balance 56.992 -153.095 Weight 81.647 kg 82 kg Intake: Intake, IV Titration 56.992 46.905 Amount Heparin Sod,Pork in 0.45% 56.992 46.905 NaCl 25,000 unit In 0.45 % NaCl 1 250ml.bag @ 12 UNITS/KG/HR 9.798 mls/hr IV .Q24H [facility] Rx#: [id number] Output: Urine 200 Other: Voiding Method Toilet Toilet # Voids 2 - Exam General: [non toxic], [no distress], [appears at stated age] Derm: [warm], [dry] Head: [atraumatic], [normocephalic], [symmetric] Eyes: [EOMI], [no lid lag], [anicteric sclera] Mouth: [no lip lesion], [mucus membranes moist] Cardiovascular: [S1S2 reg], [pansystolic murmur], [positive posterior tibial pulse bilateral], Lungs: [Decreased breath sounds bilateral], [no rhonchi, no rales] , [no ac cessory muscle use] Abdominal: [soft], [ nontender to palpation], [no guarding], [no appreciable org anomegaly] Ext: [no gross muscle atrophy], [2+ pitting lower extremity edema], [no contractures] Neuro: [no focal neuro deficits] Psych: [Alert], [oriented], [appropriate affect] - Labs CBC & Chem 7: 12/21/19 04:45 12/21/19 04:45 Labs: Abnormal Lab Results - Last 24 Hours (Table) 12/20/19 12/20/19 12/20/19 Range/Units 16:00 16:46 16:46 RBC 3.47 L (3.80-5.40) m/uL Hgb (11.4-16.0) gm/dL Hct (34.0-46.0) % MCV 103.1 H (80.0-100.0) fL Plt Count 119 L (150-450) k/uL Lymphocytes # 0.8 L (1.0-4.8) k/uL APTT (22.0-30.0) sec Sodium 116 L* (137-145) mmol/L Chloride 89 L (98-107) mmol/L Carbon Dioxide 17 L (22-30) mmol/L BUN 46 H (7-17) mg/dL Creatinine 1.48 H (0.52-1.04) mg/dL Glucose 100 H (74-99) mg/dL Calcium (8.4-10.2) mg/dL AST 54 H (14-36) U/L Creatine Kinase 327 H (30-135) U/L Troponin I (0.000-0.034) ng/mL Total Protein 5.6 L (6.3-8.2) g/dL Albumin 3.3 L (3.5-5.0) g/dL Urine Protein Trace H (Negative) Ur Leukocyte Esterase Small H (Negative) Hyaline Casts 21 H (0-2) /lpf Urine Mucus Rare H (None) /hpf 12/20/19 12/20/19 12/20/19 Range/Units 16:46 23:55 23:55 RBC (3.80-5.40) m/uL Hgb (11.4-16.0) gm/dL Hct (34.0-46.0) % MCV (80.0-100.0) fL Plt Count (150-450) k/uL Lymphocytes # (1.0-4.8) k/uL APTT 127.4 H* (22.0-30.0) sec Sodium (137-145) mmol/L Chloride (98-107) mmol/L Carbon Dioxide (22-30) mmol/L BUN (7-17) mg/dL Creatinine (0.52-1.04) mg/dL Glucose (74-99) mg/dL Calcium (8.4-10.2) mg/dL AST (14-36) U/L Creatine Kinase (30-135) U/L Troponin I 5.010 H* 4.170 H* (0.000-0.034) ng/mL Total Protein (6.3-8.2) g/dL Albumin (3.5-5.0) g/dL Urine Protein (Negative) Ur Leukocyte Esterase (Negative) Hyaline Casts (0-2) /lpf Urine Mucus (None) /hpf 12/21/19 12/21/19 12/21/19 Range/Units 04:45 04:45 04:45 RBC 2.90 L (3.80-5.40) m/uL Hgb 10.1 L (11.4-16.0) gm/dL Hct 30.1 L (34.0-46.0) % MCV 103.5 H (80.0-100.0) fL Plt Count 91 L (150-450) k/uL Lymphocytes # (1.0-4.8) k/uL APTT (22.0-30.0) sec Sodium 118 L* (137-145) mmol/L Chloride 91 L (98-107) mmol/L Carbon Dioxide 21 L (22-30) mmol/L BUN 48 H (7-17) mg/dL Creatinine 1.46 H (0.52-1.04) mg/dL Glucose (74-99) mg/dL Calcium 8.3 L (8.4-10.2) mg/dL AST 49 H (14-36) U/L Creatine Kinase (30-135) U/L Troponin I 3.070 H* (0.000-0.034) ng/mL Total Protein 4.7 L (6.3-8.2) g/dL Albumin 2.5 L (3.5-5.0) g/dL Urine Protein (Negative) Ur Leukocyte Esterase (Negative) Hyaline Casts (0-2) /lpf Urine Mucus (None) /hpf 12/21/19 Range/Units 07:34 RBC (3.80-5.40) m/uL Hgb (11.4-16.0) gm/dL Hct (34.0-46.0) % MCV (80.0-100.0) fL Plt Count (150-450) k/uL Lymphocytes # (1.0-4.8) k/uL APTT 53.6 H (22.0-30.0) sec Sodium (137-145) mmol/L Chloride (98-107) mmol/L Carbon Dioxide (22-30) mmol/L BUN (7-17) mg/dL Creatinine (0.52-1.04) mg/dL Glucose (74-99) mg/dL Calcium (8.4-10.2) mg/dL AST (14-36) U/L Creatine Kinase (30-135) U/L Troponin I (0.000-0.034) ng/mL Total Protein (6.3-8.2) g/dL Albumin (3.5-5.0) g/dL Urine Protein (Negative) Ur Leukocyte Esterase (Negative) Hyaline Casts (0-2) /lpf Urine Mucus (None) /hpf Assessment and Plan Assessment: Non-ST elevation [place] Bilateral lower extremity edema with possible CHF exacerbation Hyponatremia Hypochloremic metabolic acidosis 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 Patient is continued on a heparin drip. She is continued on aspirin, Lipitor and metoprolol. She is on a barrel racer. Echocardiogram is ordered and is pending. Cardiology has been consulted, waiting on improvement in renal function prior to cardiac catheterization. Her lower extremity edema is likely related to CHF exacerbation versus fluid ove rload from CKD. She will be started on Lasix 40 mg IV twice a day. Strict intake and output take will be ordered along with daily weights. Her sodium is slightly improved from 116-118. Her hyponatremia is thought to be related to hypervolemia and she has been started on IV diuresis as mentioned above. Nephrology has been consulted and urine osmolality along with repeat sodium has been ordered for this evening. Her hypochloremic metabolic acidosis could be attributed to her history of diarrhea. Her creatinine of 1.46 is actually better than her creatinine at baseline which is around 1.9. She will be continued on CIWA protocol and given Ativan as needed for alcohol abuse. DVT prophylaxis: [Heparin drip] Discussed with: [Patient] Anticipated discharge: [2-3 days] Anticipated discharge place: [Home] A total of [45] minutes was spent on the care of this complex patient more than 50% of the time was spent in counseling and care coordination. [Patient presenting with non-ST elevation IA, plans for cardiac catheterization when sodium improves. Also found to be severely hyponatremic. Hypervolemic. Started on IV diuresis. Cardiology and nephrology on board. Prognosis is guarded.]
[2019-12-21] MEDS: HEPARIN SOD,PORK IN 0.45% NACL 25,000 UNIT in 0.45% NACL 1 250ML.BAG IV SCH (17:48)
[2019-12-21] MEDS: CALCIUM CARBONATE 500 MG CHEWABLE PO SCH (20:28)
[2019-12-22] MEDS: HYDROcodone/APAP 5-325MG 1 EACH TAB PO PRN ×5 (01:16→21:26)
[2019-12-22 06:31] LABS: Basophils % (A) 0 %; Eosinophils % (A) 1 %; HCT 30.7 % (34.0-46.0); Lymphocytes # (A) 1.4 k/uL (1.0-4.8); Lymphocytes % (A) 38 %; MCH 33.5 pg (25.0-35.0); MCHC 32.5 g/dL (31.0-37.0); MCV 103.1 fL (80.0-100.0); Macrocytosis Slight; Monocytes # (A) 0.2 k/uL (0-1.0); Monocytes % (A) 5 %; Neutrophils % (A) 54 %; RBC 2.97 m/uL (3.80-5.40); RDW 13.3 % (11.5-15.5); WBC 3.6 k/uL (3.8-10.6)
[2019-12-22 06:33] LABS: Platelet Count 92 k/uL (150-450)
[2019-12-22 06:37] LABS: Prothrombin Time 10.2 sec (9.0-12.0)
[2019-12-22] MEDS: THIAMINE 100 MG TAB PO SCH ×2 (06:43→18:34)
[2019-12-22] MEDS: LEVOTHYROXINE 75 MCG TAB PO SCH (06:44)
[2019-12-22 08:49] LABS: Albumin 2.7 g/dL (3.5-5.0); Calcium 8.1 mg/dL (8.4-10.2); Potassium 3.7 mmol/L (3.5-5.1); Total Bilirubin 0.4 mg/dL (0.2-1.3)
[2019-12-22] MEDS ORDERED: CALCITRIOL 0.25 MCG CAP PO SCH (09:00)
[2019-12-22] MEDS ORDERED: predniSONE 5 MG TAB PO SCH (09:00)
[2019-12-22] MEDS: ASPIRIN 81 MG PO SCH (09:08)
[2019-12-22] MEDS: ATORVASTATIN 10 MG TAB PO SCH (09:08)
[2019-12-22] MEDS: METOPROLOL TARTRATE 12.5 MG TAB PO SCH (09:09)
[2019-12-22] MEDS: FUROSEMIDE 10 MG/ML 4 ML VIAL IV SCH ×2 (09:09→20:07)
[2019-12-22] MEDS: RALOXIFENE 60 MG TAB PO SCH (09:11)
[2019-12-22] MEDS: CALCIUM CARBONATE 500 MG CHEWABLE PO SCH ×3 (09:23→20:07)
[2019-12-22] MEDS: MYCOPHENOLATE SODIUM DR 180 MG TABLET.DR PO SCH ×2 (09:25→20:07)
[2019-12-22] MEDS ORDERED: ALPRAZolam 0.25 MG TAB PO PRN (10:51)
[2019-12-22] MEDS ORDERED: ALPRAZolam 0.5 MG TAB PO PRN (10:51)
[2019-12-22] MEDS ORDERED: NITROGLYCERIN SL TABS 0.4 MG TAB SUBLINGUAL PRN (10:51)
[2019-12-22] MEDS ORDERED: ASPIRIN 325 MG TAB PO STA (10:51)
--- NOTE | 2019-12-22 10:55 | P.PN ---
Subjective Progress Note Date: 12/22/19 This is a pleasant 79-year-old female with past medical history significant for hyperlipidemia, hypertension, history of renal transplant several years ago who presented to the hospital mainly with symptoms of not feeling well. She was having some general weakness and fatigue as well as some shortness of breath. She also was having progressive worsening in her lower extremity edema. The workup in the emergency room was consistent with congestive heart failure. Patient did have significant lower extremity bilateral pitting edema, appears today that the edema has worsened in her lower extremities. Blood pressure 116/70 with a heart rate in the 90s, 97% on room air. White blood cell count 4.2, hemoglobin 10.1, platelet count 91. Sodium 118, potassium 4.2, BUN 48, creatinine 1.4. Troponins 5.0, 4.1, 3.0. BNP level on admission was 19,100. 12/22/2019 Patient seen and examined this morning, feeling better overall . Creatinine this morning is 1.4, sodium improved at 123. Lying flat in bed at the time of my examination blood pressure 114/70 with a heart rate in the 60s to 80s, 95% on room air. Objective - Vital Signs Vital signs: Vital Signs Temp 97.7 F 12/22/19 08:00 Pulse 86 12/22/19 08:00 Resp 16 12/22/19 08:00 BP 115/69 12/22/19 08:00 Pulse Ox 95 12/22/19 08:00 Intake & Output 12/21/19 12/22/19 12/22/19 18:59 06:59 18:59 Intake Total 114.874 540 Output Total 200 950 Balance -85.126 -410 Weight 84.6 kg Intake: Intake, IV Titration 114.874 Amount Heparin Sod,Pork in 0.45% 114.874 NaCl 25,000 unit In 0.45 % NaCl 1 250ml.bag @ 12 UNITS/KG/HR 9.798 mls/hr IV .Q24H [facility] Rx#: [id number] Oral 540 Output: Urine 200 950 Other: Voiding Method Toilet Toilet # Voids 2 - Exam PHYSICAL EXAMINATION: GENERAL: 79-year-old female in no acute distress at the time of my examination HEENT: Head is atraumatic, normocephalic. Pupils equal, round. Sclera anicteric. Conjunctiva are clear. Mucous membranes of the mouth are moist. Ne ck is supple. There is elevated jugular venous pressure. No carotid bruit is heard. HEART EXAMINATION: S1 and S2 1 pansystolic murmur is heard CHEST EXAMINATION:'s reveal diminished air entry to the bases bilaterally ABDOMEN: Soft, obese, nontender. Bowel sounds are heard. No organomegaly noted. EXTREMITIES: 2+ peripheral pulses with 2-3+ evidence of peripheral edema and no calf tenderness noted. NEUROLOGIC patient is awake, alert and oriented 3 . . - Labs CBC & Chem 7: 12/22/19 06:02 12/22/19 06:02 Labs: Abnormal Lab Results - Last 24 Hours (Table) 12/21/19 12/22/19 12/22/19 Range/Units 17:42 06:02 06:02 WBC 3.6 L (3.8-10.6) k/uL RBC 2.97 L (3.80-5.40) m/uL Hgb 10.0 L (11.4-16.0) gm/dL Hct 30.7 L (34.0-46.0) % MCV 103.1 H (80.0-100.0) fL Plt Count 92 L (150-450) k/uL APTT 53.0 H (22.0-30.0) sec Sodium 120 L (137-145) mmol/L Chloride (98-107) mmol/L Carbon Dioxide (22-30) mmol/L BUN (7-17) mg/dL Creatinine (0.52-1.04) mg/dL Calcium (8.4-10.2) mg/dL AST (14-36) U/L Total Protein (6.3-8.2) g/dL Albumin (3.5-5.0) g/dL 12/22/19 Range/Units 06:02 WBC (3.8-10.6) k/uL RBC (3.80-5.40) m/uL Hgb (11.4-16.0) gm/dL Hct (34.0-46.0) % MCV (80.0-100.0) fL Plt Count (150-450) k/uL APTT (22.0-30.0) sec Sodium 123 L (137-145) mmol/L Chloride 96 L (98-107) mmol/L Carbon Dioxide 17 L (22-30) mmol/L BUN 53 H (7-17) mg/dL Creatinine 1.46 H (0.52-1.04) mg/dL Calcium 8.1 L (8.4-10.2) mg/dL AST 52 H (14-36) U/L Total Protein 5.0 L (6.3-8.2) g/dL Albumin 2.7 L (3.5-5.0) g/dL Assessment and Plan Plan: Assessment and plan #1 acute coronary event, at present we'll continue maximum medical therapy, once cleared from a heart failure and nephrology perspective we may consider cardiac catheterization #2 congestive heart failure, LV function unknown #3 valvular heart disease #4 acute on chronic kidney disease with prior kidney transplant #5 hyponatremia #6 hypertension 7 hyperlipidemia Plan Echocardiogram with Doppler study remains pending. We will continue current dose of IV Lasix. I did have a discussion with nephrology today, we will tentatively book the patient for cardiac catheterization tomorrow with Dr. Lorenzo. The risks and benefits were explained to the patient in detail and she is willing to proceed. DNP note has been reviewed, I agree with a documented findings and plan of care. Patient was seen and examined.
--- NOTE | 2019-12-22 15:55 | PN ---
PROGRESS NOTE Patient is seen for followup for posttransplant care and hyponatremia. The patient has been hypervolemic. She was started on Lasix. Her serum sodium has improved. The patient also had elevated troponin at 5 on admission and is being considered for cardiac catheterization. This morning patient denies any shortness of breath. She is complaining of weakness. PHYSICAL EXAMINATION: On examination, blood pressure was 115/69, heart rate 86 per minute she is afebrile examination of the heart S1, S2. Examination of the lungs, decreased breath sounds at bases abdomen is soft, nontender. Examination of lower extremities shows edema 2+ bilaterally. CHEF DE CUISINE exam is grossly intact. LABS: Show sodium 123, potassium 3.7, BUN 53, serum creatinine 1.46. ASSESSMENT: 1. Status post donor transplant almost 20 years ago for polycystic kidney disease currently stable renal function at baseline. 2. 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 Serum creatinine is better than baseline, most likely associated with volume overload. 3. Hyponatremia which is hypervolemic. Continue to diurese patient, currently improving. 4. Acute [place], non ST elevation, being followed by Cardiology, being considered for cardiac catheterization in a.m. 5. Volume overload, continue with Lasix. 6. 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 7. Metabolic acidosis associated with renal failure and diarrhea on initial admission currently improved. PLAN: Continue with IV Lasix. Avoid IV fluids, repeat labs in a.m. Continue current immunosuppressive medications. MMODL / IJN: [id number] /
--- NOTE | 2019-12-22 16:44 | ECHOF ---
Referral Reason:nstemi MEASUREMENTS -------- HEIGHT: 167.6 cm WEIGHT: 84.4 kg BP: 132/72 IVSd: 1.5 cm (0.6 - 1.1) LVIDd: 4.8 cm (3.9 - 5.3) LVPWd: 1.3 cm (0.6 - 1.1) IVSs: 1.7 cm LVIDs: 3.1 cm LVPWs: 1.8 cm RVIDd: 3.3 cm (< 3.3) LAESV Index (A-L): 33.55 ml/m Ao Diam: 2.5 cm (2.0 - 3.7) AV Cusp: 1.5 cm (1.5 - 2.6) EPSS: 0.7 cm RAP: 5.00 mmHg RVSP: 80.79 mmHg MV EF SLOPE: 110.58 mm/s (70 - 150) MV EXCURSION: 20.04 mm (> 18.000) FINDINGS -------- Atrial fibrillation. This was a technically adequate study. The left ventricular size is normal. There is moderate concentric left ventricular hypertrophy. O verall left ventricular systolic function is mildly impaired with, an EF between 45 - 50 %. Left ve ntricular fillimg pressure cannot be estimated due to Atrial fibrillation. Dexter Hypokinesis. The right ventricle is mildly enlarged. LA is midly dilated 29-33ml/m2. The right atrial size is normal. Interatrial and interventricular septum intact. There is no evidence of aortic regurgitation. There is no evidence of aortic stenosis. Cannot rul e out vegetation. Moderate mitral regurgitation is present. Moderate to severe tricuspid regurgitation present. There is severe pulmonary hypertension. The r ight ventricular systolic pressure, as measured by Doppler, is 80.79mmHg. Trace/mild (physiologic) pulmonic regurgitation. The aortic root size is normal. IVC Not well visulized. There is no pericardial effusion. CONCLUSIONS -------- 1. Atrial fibrillation. 2. This was a technically adequate study. 3. The left ventricular size is normal. 4. There is moderate concentric left ventricular hypertrophy. 5. Overall left ventricular systolic function is mildly impaired with, an EF between 45 - 50 %. 6. Left ventricular fillimg pressure cannot be estimated due to Atrial fibrillation. 7. Dexter Hypokinesis. 8. The right ventricle is mildly enlarged. 9. LA is midly dilated 29-33ml/m2. 10. The right atrial size is normal. 11. Interatrial and interventricular septum intact. 12. There is no evidence of aortic regurgitation. 13. There is no evidence of aortic stenosis. 14. Cannot rule out vegetation. 15. Moderate mitral regurgitation is present. 16. Moderate to severe tricuspid regurgitation present. 17. There is severe pulmonary hypertension. 18. The right ventricular systolic pressure, as measured by Doppler, is 80.79mmHg. 19. Trace/mild (physiologic) pulmonic regurgitation. 20. The aortic root size is normal. 21. IVC Not well visulized. 22. There is no pericardial effusion. CAREER PLACEMENT SPECIALIST: Claudine Schmidt RDCS
--- NOTE | 2019-12-22 17:11 | P.PN ---
Subjective Progress Note Date: 12/22/19 Principal diagnosis: Generalized weakness, lower extremity swelling Patient was seen and examined. No acute events overnight. Patient reports a slight improvement in her lower extremity swelling. She denies any chest pain, shortness breath or palpitations. No nausea or vomiting. No fever or chills. Objective - Vital Signs Vital signs: Vital Signs Temp 97.8 F 12/22/19 16:00 Pulse 70 12/22/19 16:00 Resp 18 12/22/19 16:00 BP 123/78 12/22/19 16:00 Pulse Ox 100 12/22/19 16:00 Intake & Output 12/21/19 12/22/19 12/22/19 18:59 06:59 18:59 Intake Total 114.874 540 Output Total 200 950 400 Balance -85.126 -410 -400 Weight 84.6 kg Intake: Intake, IV Titration 114.874 Amount Heparin Sod,Pork in 0.45% 114.874 NaCl 25,000 unit In 0.45 % NaCl 1 250ml.bag @ 12 UNITS/KG/HR 9.798 mls/hr IV .Q24H [facility] Rx#: [id number] Oral 540 Output: Urine 200 950 400 Other: Voiding Method Toilet Toilet # Voids 2 - Exam General: [non toxic], [no distress], [appears at stated age] Derm: [warm], [dry] Head: [atraumatic], [normocephalic], [symmetric] Eyes: [EOMI], [no lid lag], [anicteric sclera] Mouth: [no lip lesion], [mucus membranes moist] Cardiovascular: [S1S2 reg], [pansystolic murmur], [positive posterior tibial pulse bilateral], Lungs: [Decreased breath sounds bilateral], [no rhonchi, no rales] , [no accessory muscle use] Abdominal: [soft], [ nontender to palpation], [no guarding], [no appreciable organomegaly] Ext: [no gross muscle atrophy], [2+ pitting lower extremity edema with mild erythema], [no contractures] Neuro: [no focal neuro deficits] Psych: [Alert], [oriented], [appropriate affect] - Labs CBC & Chem 7: 12/22/19 06:02 12/22/19 06:02 Labs: Abnormal Lab Results - Last 24 Hours (Table) 12/21/19 12/22/19 12/22/19 Range/Units 17:42 06:02 06:02 WBC 3.6 L (3.8-10.6) k/uL RBC 2.97 L (3.80-5.40) m/uL Hgb 10.0 L (11.4-16.0) gm/dL Hct 30.7 L (34.0-46.0) % MCV 103.1 H (80.0-100.0) fL Plt Count 92 L (150-450) k/uL APTT 53.0 H (22.0-30.0) sec Sodium 120 L (137-145) mmol/L Chloride (98-107) mmol/L Carbon Dioxide (22-30) mmol/L BUN (7-17) mg/dL Creatinine (0.52-1.04) mg/dL Calcium (8.4-10.2) mg/dL AST (14-36) U/L Total Protein (6.3-8.2) g/dL Albumin (3.5-5.0) g/dL 12/22/19 Range/Units 06:02 WBC (3.8-10.6) k/uL RBC (3.80-5.40) m/uL Hgb (11.4-16.0) gm/dL Hct (34.0-46.0) % MCV (80.0-100.0) fL Plt Count (150-450) k/uL APTT (22.0-30.0) sec Sodium 123 L (137-145) mmol/L Chloride 96 L (98-107) mmol/L Carbon Dioxide 17 L (22-30) mmol/L BUN 53 H (7-17) mg/dL Creatinine 1.46 H (0.52-1.04) mg/dL Calcium 8.1 L (8.4-10.2) mg/dL AST 52 H (14-36) U/L Total Protein 5.0 L (6.3-8.2) g/dL Albumin 2.7 L (3.5-5.0) g/dL Assessment and Plan Assessment: Non-ST elevation CT Bilateral lower extremity edema with possible CHF exacerbation Hyponatremia Hypochloremic metabolic acidosis 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 Patient is continued on a heparin drip. She is continued on aspirin, Lipitor and metoprolol. She is on a conveyor monitor. Echocardiogram is ordered and shows EF of 45-50% with hypokinetic wall motion. Cardiology has been consulted, and case was discussed with Dr. Lorenzo, plans for cardiac catheterization tomorrow. Her lower extremity edema is likely related to CHF exacerbation versus fluid overload from CKD. She will be continued on Lasix 40 mg IV twice a day. Strict intake and output take will be ordered along with daily weights. Her sodium is slightly improved from 116-118-123. Her hyponatremia is thought to be related to hypervolemia and she has been started on IV diuresis as mentioned above. Nephrology is following the patient as well. Her hypochloremic metabolic acidosis could be attributed to her history of diarrhea. Her creatinine of 1.46 is actually better than her creatinine at baseline which is around 1.9. She will be continued on CIWA protocol and given Ativan as needed for alcohol abuse. DVT prophylaxis: [Heparin drip] Discussed with: [Patient] Anticipated discharge: [2-3 days] Anticipated discharge place: [Home] A total of [45] minutes was spent on the care of this complex patient more than 50% of the time was spent in counseling and care coordination. [Patient presenting with non-ST elevation CT, plans for cardiac catheterization tomorrow. Also found to be severely hyponatremic, Hypervolemic, Started on IV diuresis. Cardiology and nephrology on board. Prognosis is guarded. Anticipate DC in 1-2 days.]
[2019-12-23] MEDS: METOPROLOL TARTRATE 12.5 MG TAB PO SCH (04:22)
[2019-12-23] MEDS: THIAMINE 100 MG TAB PO SCH (04:22)
[2019-12-23] MEDS: LEVOTHYROXINE 75 MCG TAB PO SCH (04:22)
[2019-12-23] MEDS: CALCIUM CARBONATE 500 MG CHEWABLE PO SCH (04:22)
[2019-12-23] MEDS: HYDROcodone/APAP 5-325MG 1 EACH TAB PO PRN (04:23)
[2019-12-23] MEDS: ATORVASTATIN 10 MG TAB PO SCH (05:37)
[2019-12-23] MEDS: ASPIRIN 81 MG PO SCH (05:37)
[2019-12-23] MEDS: FUROSEMIDE 10 MG/ML 4 ML VIAL IV SCH (05:38)
[2019-12-23] MEDS ORDERED: ATORVASTATIN 80 MG TAB PO ONE (06:00)
[2019-12-23] MEDS ORDERED: SODIUM CHLORIDE 0.9% 1,000 ML in EMPTY BAG 1 BAG IV ONE (06:00)
[2019-12-23] MEDS ORDERED: ASPIRIN 325 MG TAB PO ONE (06:00)
[2019-12-23 06:16] LABS: Basophils % (A) 0 %; Eosinophils # (A) 0.1 k/uL (0-0.7); Eosinophils % (A) 1 %; HGB 9.1 gm/dL (11.4-16.0); Lymphocytes # (A) 1.9 k/uL (1.0-4.8); Lymphocytes % (A) 28 %; MCH 34.2 pg (25.0-35.0); MCHC 32.6 g/dL (31.0-37.0); MCV 104.9 fL (80.0-100.0); Macrocytosis Slight; Mean Platelet Volume 8.2; Monocytes # (A) 0.5 k/uL (0-1.0); Monocytes % (A) 7 %; Neutrophils # (A) 4.3 k/uL (1.3-7.7); Neutrophils % (A) 62 %; Platelet Count 110 k/uL (150-450); RBC 2.66 m/uL (3.80-5.40); RDW 13.7 % (11.5-15.5); WBC 6.8 k/uL (3.8-10.6)
[2019-12-23] MEDS: HEPARIN SOD,PORK IN 0.45% NACL 25,000 UNIT in 0.45% NACL 1 250ML.BAG IV SCH (07:40)
[2019-12-23 09:09] LABS: Albumin 3.1 g/dL (3.5-5.0); Calcium 8.6 mg/dL (8.4-10.2); Potassium 3.7 mmol/L (3.5-5.1); Total Bilirubin 0.5 mg/dL (0.2-1.3); Total Protein 5.3 g/dL (6.3-8.2)
[2019-12-23] MEDS ORDERED: LIDOCAINE 1% INJ 10MG/ML (20 ML MDV) ONE (10:03)
[2019-12-23] MEDS ORDERED: VERAPAMIL 2.5 MG/ML 2 ML AMP ONE (10:08)
[2019-12-23] MEDS ORDERED: MIDAZOLAM 2 MG/2 ML VIAL IVP ONE (10:15)
[2019-12-23] MEDS ORDERED: LIDOCAINE 1% INJ 10MG/ML (20 ML MDV) SQ ONE (10:15)
[2019-12-23] MEDS ORDERED: IV FLUID CONTINUATION 1,000 ML IV ONE (10:21)
[2019-12-23] MEDS ORDERED: IOPAMIDOL-370 125ML BTL INJ ONE (10:22)
[2019-12-23] MEDS ORDERED: RX INFO: IV CONTRAST WAS GIVEN 1 EACH MISC MISCELLANE PRN (10:28)
[2019-12-23] MEDS ORDERED: SODIUM CHLORIDE 0.9% 1,000 ML IV SCH (10:30)
[2019-12-23] MEDS ORDERED: HYDROmorphone 1 MG/ML 1 ML SYRINGE ONE (10:32)
--- NOTE | 2019-12-23 10:33 | P.PCN ---
Date of Procedure: 12/23/19 Description of Procedure: CARDIAC CATHETERIZATION PERFORMING PHYSICIAN: Davi Cabrera MD, RPVI PROCEDURE PERFORMED: 1. Selective right and left coronary angiogram 2. Left heart catheterization INDICATION: This is a 79-year-old female patient with hypertension and dyslipidemia who presented to the hospital with shortness of breath and she was ruled in for acute non-ST elevation myocardial infarction. She underwent an echocardiogram which revealed an ejection fraction of 45% with apical hypokinesia and concerning about severe underlying coronary artery disease. COMPLICATION: None APPROACH: Right common femoral artery LEVEL OF SEDATION: Moderate with sedation length of 10 minutes PROCEDURE DESCRIPTION: After obtaining an informed consent, the patient was brought to cardiac wheelabrator operator. Local anesthesia was performed using lidocaine subcutaneously. The right common femoral artery was cannulated using Seldinger technique, the guidewire passed easily, following that we advanced a 6 Chadian sheath dilator assembly, the wire and dilator were removed and sheath was flushed. Selective right and left coronary angiogram using a 6-Chadian JR4 and JL catheters. Following that we did left heart catheterization using 6-Chadian pigtail catheter. The procedure was completed there was no complication. SELECTIVE CORONARY ANGIOGRAM: The right coronary artery: Is a large caliber vessel and codominant vessel. Its angiographically normal. Left main: Its angiographically normal. Bifurcates into LCx and LAD The left circumflex: Is a large caliber vessel and codominant vessel. Its angiographically normal. The proximal portion gives rise into a large OM branch which seems to be normal and distally appeared to be angiographically normal as well. The left anterior descending artery: Is a large caliber vessel. Its angiographically normal. In the midportion gives rise into the first and second diagonal branches and both appeared to be angiographically normal. HEMODYNAMICS: LVEDP was 12 mmHg without significant gradient across aortic valve CONCLUSION: 1. Normal coronary angiogram 2. Normal left ventricular end-diastolic pressure POSTPROCEDURE MANAGEMENT: 1. Medical treatment 2. Follow-up with the patient
[2019-12-23] MEDS ORDERED: HYDROmorphone 1 MG/ML 1 ML SYRINGE IVP ONE (10:34)
--- NOTE | 2019-12-23 11:20 | PN ---
PROGRESS NOTE Patient is seen for followup for hyponatremia. Her serum sodium continues to improve. The patient is currently being diuresed. She is going for cardiac cath today. This morning patient is complaining of inability to move her left shoulder. She denies any chest pains or shortness of breath. PHYSICAL EXAMINATION: Blood pressure this morning was 122/87, heart rate 63 per minute, she is afebrile. Examination of the heart S1, S2. Examination of the lungs, bilateral breath sounds are heard. Abdomen is soft, nontender. Examination of the lower extremities shows edema 2+ bilaterally. Chronic skin changes noted. RIVETER PNEUMATIC exam grossly intact. LABS: Show sodium 126, potassium 3.7, BUN 55, creatinine 1.4, hemoglobin 9.1 g/dL. ASSESSMENT: 1. Hyponatremia, which is hypervolemic, currently maintained on IV Lasix and improving. 2. CKD mineral bone disorder maintained on calcitriol. 3. 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 Renal function close to baseline. 4. Status post donor kidney transplant almost 20 years ago for polycystic kidney disease, currently stable. 5. Acute [place], non ST elevation, scheduled for cardiac cath today. 6. Volume overload, maintained on IV Lasix. 7. Metabolic acidosis associated with renal failure, now improved. PLAN: Continue with IV Lasix for now. Repeat labs in a.m. Continue current immunosuppression. MMODL / IJN: [id number] /
[2019-12-23 11:40] VITALS: RESP 18
--- NOTE | 2019-12-23 13:09 | CT ---
EXAMINATION TYPE: CT brain wo con DATE OF EXAM: 12/23/2019 COMPARISON: None INDICATION: AMS post heart cath DLP: 1158.4 mGycm, Automated exposure control for dose reduction was used. CONTRAST: None. Contrast may be present due to recent heart catheterization. CT of the brain is performed utilizing 3 mm thick sections through the posterior fossa and 3 mm thick sections through the remaining calvarium. Study is performed within 24 hours of arrival to the hosp [facility]. There is irregular subdural hematoma along the right inner calvarium. The mass effect on the adjacent frontal lobe has a depth of 1.7 cm. Blood Fluid levels are in the right extra-axial parietal region with a depth of 1.5 cm. There is a small intraparenchymal hemorrhage on the left occipital vertex. Intraparenchymal hemorrhag e appears to be at the right parietal-occipital region which may be decompressing into the extra-axia l space. No mass lesion is evident. No acute infarcts are evident. No midline shift is evident. There is some effacement of the right sonal e sulci. No midline shift is evident. Left cerebral sulci appear normal. Third ventricle and fourth ventricle are midline. Paranasal sinuses and mastoid air cells within the [id number] are clear. IMPRESSIONS: 1. Lobular multiple blood fluid levels within the right subdural space. This could be an acute on c hronic subdural hematomas with a maximum depth of 1.7 cm adjacent to the frontal region. 2. Intraparenchymal hemorrhages in the parieto-occipital regions bilaterally. On the right this may b e decompressing into the extra-axial space. 3. Effacement of sulci without midline shift adjacent to the right subdural hemorrhages A [place] critical message alert has been initiated for Adithya Shea MD~[id number] via the [facility] Critical Results System on 12/23/2019 1:06 PM. This message alert has been sent to Adithya Shea MD~[id number] via the preferences provided by the clinician for the receipt of Radiology Critical Finding s. Message ID [id number].
--- NOTE | 2019-12-23 14:08 | P.CNNES ---
History of Present Illness Consult date: 12/23/19 Requesting physician: Jennifer Gibbons Reason for Consult: Altered mental status History of Present Illness: Patient is a 79-year-old right-handed female, with history of renal transplant in 1998, came to the hospital on 12/20/2023 generalized weakness with decreased urine output. She was concerned her kidneys were failing. Patient had elevated cardiac enzymes. She was started on heparin drip. Patient was noted to be in acute renal failure with fluid overload. Patient was started on diuresis. Patient was very alert and awake, sitting in the recliner, talking normally since she has been in the hospital. Patient underwent cardiac catheterization today, and was noted to have altered mental status with mild left-sided weakness. Patient underwent CT head, which showed lobular multiple blood fluid levels within the right subdural space. This could be an acute on chronic subdural hematomas with maximum depth of 1.7 cm adjacent to the frontal region. Intraparenchymal hemorrhages in the parieto-occipital regions bilaterally. On the right this may be decompressing into the extra-axial space. Effacement of sulci without midline shift adjacent to the right subdural hemorrhages. Patient's most recent PTT is 45.3 from 8:15 today. Patient's CBC with WBC 6.8 hemoglobin 9.1 and platelets 110. Patient's hemoglobin on arrival was 11.9, height hemoglobin A1c 5.3 on 09/26/2018. AST is mildly elevated 58, normal ALT. TSH normal. Patient has a 2-D echo, which revealed atrial fibrillation, EF is 45-50%. [place] hypokinetic. Left atrium is mildly dilated. There is evidence of aortic regurgitation and aortic stenosis, cannot rule out vegetation. Patient at present appears encephalopathic, lethargic. When I asked patient if she hit her head, states "yes", when I asked when, states "I don't know". Same response I got if she fell down in the past. States "I cannot think" patient complains of headache 12 on a scale of 1-10. Complains of left wrist pain. Patient denies history of diabetes or tobacco use. Review of Systems ROS unobtainable: due to mental status Past Medical History Past Medical History: Cancer, Hyperlipidemia, Hypertension, Renal Disease, Thyroid Disorder Additional Past Medical History / Comment(s): MULT SKIN CANCER, GOUT, ARTHRITIS,ULCER YEARS AGO, POLYCYSTIC KIDNEY DISEASE, ANEMIA History of Any Multi-Drug Resistant Organisms: None Reported Past Surgical History: Tubal Ligation Additional Past Surgical History / Comment(s): [employer] 06/1999, CATARACT, LEFT CAROTID ENDARTERECTOMY, RECTAL FISSURE, MULT SKIN CANCER REMOVED, D & C Past Anesthesia/Blood Transfusion Reactions: No Reported Reaction Past Psychological History: No Psychological Hx Reported Smoking Status: Former smoker Past Alcohol Use History: Daily Past Drug Use History: None Reported - Past Family History family Family Medical History: No Reported History Medications and Allergies Home Medications Medication Instructions Recorded Confirmed Type Enalapril [Vasotec] 2.5 mg PO QAM PRN 12/03/13 12/20/19 History Furosemide [Lasix] 40 mg PO QAM PRN 12/03/13 12/20/19 History Levothyroxine Sodium [Synthroid] 75 mcg PO MOTUWETHFR 12/03/13 12/20/19 History Raloxifene [Evista] 60 mg PO QAM 12/03/13 12/20/19 History predniSONE [Prednisone] 5 mg PO Q48H 12/03/13 12/20/19 History Hydrocodone/Acetaminophen [[place] 1 tab PO ACHS PRN 01/21/14 12/20/19 History 5-325] Iron 27 mg PO DAILY 01/21/14 12/20/19 History Atorvastatin [Lipitor] 10 mg PO DAILY 12/20/19 12/20/19 History Calcitriol [Rocaltrol] 0.25 mcg PO MOWEFR 12/20/19 12/20/19 History Calcium Carbonate [Calcium] 600 mg PO BID 12/20/19 12/20/19 History Cyclosporine, Modified 25 mg PO Q48H 12/20/19 12/20/19 History [Cyclosporine Modified] Cyclosporine, Modified 50 mg PO Q48H 12/20/19 12/20/19 History [Cyclosporine Modified] Ergocalciferol (Vitamin D2) 50,000 unit PO Q30D 12/20/19 12/20/19 History [Drisdol] Febuxostat [Uloric] 80 mg PO DAILY 12/20/19 12/20/19 History Multivitamins, Thera [Multivitamin 1 tab PO DAILY 12/20/19 12/20/19 History (formulary)] Mycophenolate Sodium [Mycophenolic 360 mg PO BID 12/20/19 12/20/19 History Acid] predniSONE 2.5 mg PO Q48H 12/20/19 12/20/19 History Allergies Allergy/AdvReac Type Severity Reaction Status Date / Time morphine Allergy nightmares Verified 12/20/19 16:13 Penicillins Allergy Unknown Verified 12/20/19 16:13 Childhood Physical Examination - Vital Signs Vital Signs: Vital Signs Temp Pulse Resp BP Pulse Ox 12/23/19 12:50 73 18 112/68 99 12/23/19 12:20 18 111/44 100 12/23/19 11:50 78 120/70 98 12/23/19 11:35 63 18 125/70 98 12/23/19 11:20 63 112/68 98 12/23/19 11:05 66 108/70 98 12/23/19 07:42 98.1 F 63 20 96/54 100 12/23/19 04:57 97.9 F 66 16 122/87 95 12/22/19 23:46 97.9 F 66 18 106/70 96 12/22/19 21:00 98.1 F 67 16 108/67 97 12/22/19 16:00 97.8 F 70 18 123/78 100 Intake and Output 12/22/19 12/23/19 12/23/19 22:59 06:59 14:59 Intake Total 236 290 Output Total 600 500 Balance -364 -210 Intake: IV 50 Oral 236 Blood Product 240 Output: Urine 600 500 Other: Voiding Method Toilet Toilet Toilet Weight 80 kg On examination patient is an elderly female, laying in the bed, appea rs lethargic, obtunded. Patient does open her eyes to calling her name, knows her name and her age. She does answer appropriately short answers, but then she starts rambling. Her pupils are about 3 mm, barely reacting bilaterally. Visual linder could not be tested because of mental status. Face appears symmetric. Patient appears left hemiparetic decreased movement as compared to the right. Patient able to squeeze hand on the right to some extent but not on the left. Able to wiggle her feet more on the right as compared to left. Risk and plantars are upgoing bilaterally. Sensory and cerebellar functions could not be tested. No obvious bruit, S1 and S2 audible. She has peripheral edema. Abdomen is soft. Results - Laboratory Findings CBC and BMP: 12/23/19 05:47 12/23/19 05:47 Abnormal Lab Findings: Abnormal Labs 12/20/19 12/20/19 12/20/19 16:00 16:46 16:46 WBC RBC 3.47 L Hgb Hct MCV 103.1 H Plt Count 119 L Lymphocytes # 0.8 L APTT Sodium 116 L* Chloride 89 L Carbon Dioxide 17 L BUN 46 H Creatinine 1.48 H Glucose 100 H Calcium AST 54 H Creatine Kinase 327 H Troponin I Total Protein 5.6 L Albumin 3.3 L Urine Protein Trace H Ur Leukocyte Esterase Small H Hyaline Casts 21 H Urine Mucus Rare H Cyclosporine 12/20/19 12/20/19 12/20/19 16:46 23:55 23:55 WBC RBC Hgb Hct MCV Plt Count Lymphocytes # APTT 127.4 H* Sodium Chloride Carbon Dioxide BUN Creatinine Glucose Calcium AST Creatine Kinase Troponin I 5.010 H* 4.170 H* Total Protein Albumin Urine Protein Ur Leukocyte Esterase Hyaline Casts Urine Mucus Cyclosporine 12/21/19 12/21/19 12/21/19 04:45 04:45 04:45 WBC RBC 2.90 L Hgb 10.1 L Hct 30.1 L MCV 103.5 H Plt Count 91 L Lymphocytes # APTT Sodium 118 L* Chloride 91 L Carbon Dioxide 21 L BUN 48 H Creatinine 1.46 H Glucose Calcium 8.3 L AST 49 H Creatine Kinase Troponin I 3.070 H* Total Protein 4.7 L Albumin 2.5 L Urine Protein Ur Leukocyte Esterase Hyaline Casts Urine Mucus Cyclosporine 12/21/19 12/21/19 12/22/19 07:34 17:42 06:02 WBC RBC Hgb Hct MCV Plt Count Lymphocytes # APTT 53.6 H Sodium 120 L Chloride Carbon Dioxide BUN Creatinine Glucose Calcium AST Creatine Kinase Troponin I Total Protein Albumin Urine Protein Ur Leukocyte Esterase Hyaline Casts Urine Mucus Cyclosporine 36 L 12/22/19 12/22/19 12/22/19 06:02 06:02 06:02 WBC 3.6 L RBC 2.97 L Hgb 10.0 L Hct 30.7 L MCV 103.1 H Plt Count 92 L Lymphocytes # APTT 53.0 H Sodium 123 L Chloride 96 L Carbon Dioxide 17 L BUN 53 H Creatinine 1.46 H Glucose Calcium 8.1 L AST 52 H Creatine Kinase Troponin I Total Protein 5.0 L Albumin 2.7 L Urine Protein Ur Leukocyte Esterase Hyaline Casts Urine Mucus Cyclosporine 12/23/19 12/23/19 12/23/19 05:47 05:47 08:15 WBC RBC 2.66 L Hgb 9.1 L Hct 28.0 L MCV 104.9 H Plt Count 110 L Lymphocytes # APTT 45.3 H Sodium 126 L Chloride Carbon Dioxide 20 L BUN 55 H Creatinine 1.44 H Glucose Calcium AST 58 H Creatine Kinase Troponin I Total Protein 5.3 L Albumin 3.1 L Urine Protein Ur Leukocyte Esterase Hyaline Casts Urine Mucus Cyclosporine Assessment and Plan Assessment: * Acute on chronic subdural hematoma on the right, with a maximum depth of 1.7 cm adjacent to the frontal region. * Intraparenchymal hemorrhage in the parieto-occipital regions bilaterally. * Coagulopathy * Elevated cardiac enzymes with a negative cardiac catheterization. * Acute renal insufficiency * History of renal transplant * Hypertension Plan: * Infusion of protamine sulfate to reverse effect of heparin. * Stat PT/PTT, CBC * Consider FFP, to reverse effect of aspirin. * Stop all anticoagulants, antiplatelets. * Urgent transfer to higher level of care for neurosurgical evaluation. Patient may need craniotomy. * Discussed with primary physician in detail.
[2019-12-23] MEDS ORDERED: PROTAMINE SULFATE 10 MG/ML 5 ML VIAL IV STA (14:15)
[2019-12-23 14:29] VITALS: BMI 28.4
[2019-12-23] MEDS ORDERED: PROTAMINE SULFATE 10 MG/ML 25 ML VIAL IV STA (14:35)
[2019-12-23 14:49] LABS: HCT 23.4 % (34.0-46.0); HGB 7.7 gm/dL (11.4-16.0); MCH 33.8 pg (25.0-35.0); MCHC 32.7 g/dL (31.0-37.0); MCV 103.3 fL (80.0-100.0); Macrocytosis Slight; Mean Platelet Volume 7.9; RBC 2.27 m/uL (3.80-5.40); RDW 13.6 % (11.5-15.5); WBC 6.3 k/uL (3.8-10.6)
[2019-12-23 14:54] LABS: Platelet Count 93 k/uL (150-450)
[2019-12-23 15:14] LABS: Calcium 8.4 mg/dL (8.4-10.2); Potassium 4.3 mmol/L (3.5-5.1)
[2019-12-23] MEDS: MYCOPHENOLATE SODIUM DR 180 MG TABLET.DR PO SCH (15:35)
[2019-12-23] MEDS: predniSONE 5 MG TAB PO SCH (15:35)
[2019-12-23] MEDS: RALOXIFENE 60 MG TAB PO SCH (15:35)
--- NOTE | 2019-12-23 15:57 | P.DS ---
Providers Date of admission: 12/20/19 18:30 Expected date of discharge: 12/23/19 Attending physician: Verena Chacon MD Consults: 12/20/19 18:28 Consult Physician Urgent Consulting Provider: [facility] Consult Reason/Comments: new onset heart failure, NSTEMI Do you want consulting provider notified?: Already Contacted Consult Physician Urgent Consulting Provider: Indira Avery Consult Reason/Comments: acute hyponatremia, chronic renal failure, hx renal transplant Do you want consulting provider notified?: Yes 12/23/19 12:05 Consult Physician Urgent Consulting Provider: Frank Sánchez Consult Reason/Comments: AMS Do you want consulting provider notified?: Yes Primary care physician: [facility] Course: Patient is a 79-year-old female with past medical history of hypertension, hypothyroidism and chronic kidney disease related to renal transplant presented to the ED for decreased urination, generalized weakness and fatigue along with lower extremity swelling. In the ED, she was noted to have elevated troponins and Q waves in V1, V2 and V3 along with T-wave inversions diffusely. She was started on a heparin drip and admitted for cardiology evaluation. Her troponins were elevated at 5.01, 4.17 and 3.07. She was started on aspirin, Lipitor and metoprolol. Echocardiogram was done which showed EF 45-50% with hypokinetic wall motion. She was severely hyponatremic with sodium of 116 on admission. Her creatinine was also elevated at 1.48. Due to her lower extremity swelling and hyponatremia, this is thought to be related to volume overload. She was diuresed with Lasix 40 mg IV. Cardiology initially delayed the cardiac catheterization to improve her sodium and renal function. Her creatinine did improve to 1.26. Her sodium improved to 126. Patient underwent cardiac catheterization on 12/23/2019. Cardiac coronaries were clean. When she returned back from her cardiac cath, she was noted to be altered with slurred speech and left-sided weakness. CT brain was done which showed lobular multiple blood fluid levels within the right subdural space, acute on chronic subdural hematomas with maximum depth of 1.7 cm, intraparenchymal hemorrhages in the parieto-occipital region, effacement of sulcal without midline shift. Neurology was consulted and recommended protamine sulfate. She was given 25 mg IV protamine sulfate for reversal of heparin. Neurology also recommended urgent transfer for neurosurgical evaluation. [facility] was called and patient was accepted for transfer. She was transferred to the ICU at [facility] while she was awaiting transportation. General: [non toxic], [lethargic but easily arousable], [appears at stated age] Derm: [warm], [dry] Head: [atraumatic], [normocephalic], [symmetric] Eyes: [EOMI], [no lid lag], [anicteric sclera] Mouth: [no lip lesion], [mucus membranes moist] Cardiovascular: [S1S2 reg], [pancystolic murmur], [positive DP pulse bilateral], Lungs: [CTA bilateral], [no rhonchi, no rales] , [no accessory muscle use] Abdominal: [soft], [ nontender to palpation], [no guarding], [no appreciable organomegaly] Ext: [no gross muscle atrophy], [2+ pitting lower extremity edema with mild erythema], [no contractures] Neuro: [Patient appears to have left-sided weakness, 1-2 out of 5 in the left upper and lower extremity] Psych: [Alert and oriented 1-2] Acute metabolic encephalopathy related to acute on chronic subdural hematoma and intraparenchymal hemorrhage in the parieto-occipital region Elevated troponin Bilateral lower extremity edema with possible CHF exacerbation Hyponatremia Hypochloremic metabolic acidosis Chronic kidney disease with history of allograft renal transplant with history of polycystic kidney disease Alcohol abuse Her acute changes in mentation is likely related to worsening subdural hematoma on the right side along with intraparenchymal hemorrhage. She was started on protamine sulfate 25 mg IV. Aspirin and heparin drip was discontinued. I discussed the case with neurosurgery at [facility] and they have accepted the patient for transfer. She'll be monitored in the ICU until she can be transferred urgently. Patient underwent coronary angiogram today with clean coronary arteries. Her elevated troponins as mentioned above is likely related to chronic kidney disease. Her lower extremity edema is likely related to CHF exacerbation versus fluid overload from CKD. She will be continued on Lasix 40 mg IV twice a day. Strict intake and output take will be ordered along with daily weights. Her sodium is slightly improved from [phone]. Her hyponatremia is thought to be related to hypervolemia and she has been started on IV diuresis as mentioned above. Nephrology is following the patient as well. Her hypochloremic metabolic acidosis could be attributed to her history of diarrhea. Her creatinine of 1.26 is actually better than her creatinine at baseline which is around 1.9. She will be continued on CIWA protocol and given Ativan as needed for alcohol abuse. [Patient will be transferred for neurosurgery evaluation at [facility]. Case was discussed with neurology. The case was discussed with the son who was agreeable for the transfer of this patient. Prognosis is extremely guarded.] Pertinent Studies: Chest x-ray, echocardiogram, brain CT Procedures: Cardiac catheterization Patient Condition at Discharge: Serious Plan - Discharge Summary Discharge Rx Participant: No New Discharge Prescriptions: No Action predniSONE [Prednisone] 5 mg PO Q48H Raloxifene [Evista] 60 mg PO QAM Furosemide [Lasix] 40 mg PO QAM PRN PRN Reason: Edema Enalapril [Vasotec] 2.5 mg PO QAM PRN PRN Reason: Blood Pressure - High Levothyroxine Sodium [Synthroid] 75 mcg PO MOTUWETHFR Hydrocodone/Acetaminophen [[place] 5-325] 1 tab PO ACHS PRN PRN Reason: Pain Iron 27 mg PO DAILY Atorvastatin [Lipitor] 10 mg PO DAILY Calcitriol [Rocaltrol] 0.25 mcg PO MOWEFR Calcium Carbonate [Calcium] 600 mg PO BID Cyclosporine, Modified [Cyclosporine Modified] 25 mg PO Q48H Cyclosporine, Modified [Cyclosporine Modified] 50 mg PO Q48H Febuxostat [Uloric] 80 mg PO DAILY Multivitamins, Thera [Multivitamin (formulary)] 1 tab PO DAILY predniSONE 2.5 mg PO Q48H Mycophenolate Sodium [Mycophenolic Acid] 360 mg PO BID Ergocalciferol (Vitamin D2) [Drisdol] 50,000 unit PO Q30D Discharge Medication List Enalapril [Vasotec] 2.5 mg PO QAM PRN 12/03/13 [History] Furosemide [Lasix] 40 mg PO QAM PRN 12/03/13 [History] Levothyroxine Sodium [Synthroid] 75 mcg PO MOTUWETHFR 12/03/13 [History] Raloxifene [Evista] 60 mg PO QAM 12/03/13 [History] predniSONE [Prednisone] 5 mg PO Q48H 12/03/13 [History] Hydrocodone/Acetaminophen [[place] 5-325] 1 tab PO ACHS PRN 01/21/14 [History] Iron 27 mg PO DAILY 01/21/14 [History] Atorvastatin [Lipitor] 10 mg PO DAILY 12/20/19 [History] Calcitriol [Rocaltrol] 0.25 mcg PO MOWEFR 12/20/19 [History] Calcium Carbonate [Calcium] 600 mg PO BID 12/20/19 [History] Cyclosporine, Modified [Cyclosporine Modified] 25 mg PO Q48H 12/20/19 [History] Cyclosporine, Modified [Cyclosporine Modified] 50 mg PO Q48H 12/20/19 [History] Ergocalciferol (Vitamin D2) [Drisdol] 50,000 unit PO Q30D 12/20/19 [History] Febuxostat [Uloric] 80 mg PO DAILY 12/20/19 [History] Multivitamins, Thera [Multivitamin (formulary)] 1 tab PO DAILY 12/20/19 [History] Mycophenolate Sodium [Mycophenolic Acid] 360 mg PO BID 12/20/19 [History] predniSONE 2.5 mg PO Q48H 12/20/19 [History] Follow up Appointment(s)/Referral(s): Nicanor Pond MD [Primary Care Provider] - 1 Week
[2019-12-23 16:10] VITALS: BP 112/55; PULSE 69; TEMP 98.3
== END 2019-12-23 17:14 | disposition short-term general hospital (02) | DRG 64 ==
LOC: EC 15:59 → 3SCARD 18:30 → 2SICU 12-23 15:00
PROVIDERS: ADMIT Internal Medicine; ATTEND Internal Medicine
PROC: 4A023N7 Measurement of Cardiac Sampling and Pressure, Left Heart, Percutaneous Approach (ICD-10-PCS; principal; 2019-12-23 07:30)
PROC: B2111ZZ Fluoroscopy of Multiple Coronary Arteries using Low Osmolar Contrast (ICD-10-PCS; principal; 2019-12-23 07:30)
PROC: B2151ZZ Fluoroscopy of Left Heart using Low Osmolar Contrast (ICD-10-PCS; principal; 2019-12-23 07:30)
DX: I62.03 Nontraumatic chronic subdural hemorrhage (principal); G93.41 Metabolic encephalopathy; N17.9 Acute kidney failure, unspecified; Z94.0 Kidney transplant status; D68.9 Coagulation defect, unspecified; E87.1 Hypo-osmolality and hyponatremia; E87.2 Acidosis; I13.0 Hypertensive heart and chronic kidney disease with heart failure and stage 1 through stage 4 chronic kidney disease, or unspecified chronic kidney disease; T86.19 Other complication of kidney transplant; G81.94 Hemiplegia, unspecified affecting left nondominant side; I61.9 Nontraumatic intracerebral hemorrhage, unspecified; N18.3 Chronic kidney disease, stage 3 (moderate); I50.810 Right heart failure, unspecified; I48.91 Unspecified atrial fibrillation; I87.2 Venous insufficiency (chronic) (peripheral); M89.9 Disorder of bone, unspecified; E03.9 Hypothyroidism, unspecified; D63.8 Anemia in other chronic diseases classified elsewhere; E78.5 Hyperlipidemia, unspecified; E87.8 Other disorders of electrolyte and fluid balance, not elsewhere classified; F10.10 Alcohol abuse, uncomplicated; Z11.59 Encounter for screening for other viral diseases; I25.10 Atherosclerotic heart disease of native coronary artery without angina pectoris; I35.2 Nonrheumatic aortic (valve) stenosis with insufficiency; Y83.0 Surgical operation with transplant of whole organ as the cause of abnormal reaction of the patient, or of later complication, without mention of misadventure at the time of the procedure; Z79.52 Long term (current) use of systemic steroids; Z79.890 Hormone replacement therapy; Z79.899 Other long term (current) drug therapy; Z85.828 Personal history of other malignant neoplasm of skin; Z87.891 Personal history of nicotine dependence; R79.89 Other specified abnormal findings of blood chemistry; Z88.5 Allergy status to narcotic agent; Z88.0 Allergy status to penicillin; M10.9 Gout, unspecified; Z60.2 Problems related to living alone; M25.532 Pain in left wrist; Z98.51 Tubal ligation status; Z98.49 Cataract extraction status, unspecified eye; R47.81 Slurred speech; R40.2344 Coma scale, best motor response, flexion withdrawal, 24 hours or more after hospital admission; R40.2134 Coma scale, eyes open, to sound, 24 hours or more after hospital admission; R40.2254 Coma scale, best verbal response, oriented, 24 hours or more after hospital admission
CPT/HCPCS: 36415; 70450; 71046; 80048; 80053; 80158; 81001; 82550; 83605; 83880; 83935; 84295; 84443; 84484; 85025; 85027; 85610; 85730; 93005; 93306; 93458; 96361; 96374; 99285